=== PATIENT | male | born 1950 | race Caucasian/White ===

== ENCOUNTER 2018-06-18 21:25 | Inpatient (IN) | payer MEDICARE, OTHER ==
[~2018-06-18] VITALS: Ht 190.5 cm; Wt 76.3 kg
--- NOTE | 2018-06-18 21:42 | ED.ADGEN ---
Past History Past Medical History: Alcoholism, Depression, Seizure, Other Adult General Chief Complaint Chief Complaint ".. I ve been drinking.. now I am puking.. and my gut hurts...".. [facility] me here..." HPI HPI Patient is a 68 year old male who presents with above hx and complaints of nausea and vomiting. Pt. also complaint of some generalized abd. pain after vomiting multiple times this afternoon and late evening. Patient states he drank more than his usual 2 pints of gin patient states he does drink every day. Has had periods of sobriety in the past. Patient does have a history of some alcohol withdrawal symptoms when he attempts to quit. Patient's pain is generalized in his abdomen . No history of bad food. No history of trauma. No history of recent travel or specific ill contacts. Patient has had previous appendectomy. Pt. denies any dark or tarry stools. Review of Systems Review of Systems Constitutional: Denies fever or chills [] Eyes: Denies change in visual acuity, redness, or eye pain [] HENT: Denies nasal congestion or sore throat [] Respiratory: Denies cough or shortness of breath [] Cardiovascular: No additional information not addressed in HPI [] GI: Complaints of abdominal pain, nausea, vomiting,. Denies bloody stools or diarrhea [] : Denies dysuria or hematuria [] Musculoskeletal: Denies back pain or joint pain [] Integument: Denies rash or skin lesions [] Neurologic: Denies headache, focal weakness or sensory changes [] Endocrine: Denies polyuria or polydipsia [] All other systems were reviewed and found to be within normal limits, except as documented in this note. Family History Family History Noncontributory Current Medications Current Medications Current Medications Medications (Trade) Dose Ordered Sig/Cr Start Time Stop Time Status Last Admin Dose Admin Famotidine (Pepcid Vial) 20 mg 1X ONCE 06/18/18 21:45 06/18/18 21:46 UNV Lactated Ringer's 1,000 ml @ 1,000 mls/hr Q1H 06/18/18 21:43 06/18/18 22:42 UNV Ondansetron HCl (Zofran Odt) 8 mg 1X ONCE 06/18/18 21:45 06/18/18 21:46 UNV 06/18/18 22:03 8 MG Allergies Allergies Allergies Coded Allergies Type Severity Reaction Last Updated Verified Penicillins Allergy Unknown 06/18/18 Yes Physical Exam Physical Exam Constitutional: Currently acute distress,. intoxicated appearance. [] HENT: Normocephalic, atraumatic, bilateral external ears normal, oropharynx moist, no oral exudates, nose normal. [] Eyes: PERRLA, EOMI, conjunctiva normal, no discharge. [] Neck: Normal range of motion, no tenderness, supple, no stridor. [] Cardiovascular:Heart rate regular rhythm, no murmur [] Lungs & Thorax: Bilateral breath sounds equal at apexes scattered wheezes on auscultation [] Abdomen: Bowel sounds normal, soft, and generalized tenderness, no masses, no pulsatile masses. [] Old surgical scar Skin: Warm, dry, no erythema, no rash. [] Back: No tenderness, no CVA tenderness. [] Extremities: No tenderness, no cyanosis, no clubbing, ROM intact, no edema. [] Arthritic changes Neurologic: Alert and oriented X 3, normal motor function, normal sensory function, no focal deficits noted. []Uncoordinated. Wide gait Psychologic: Affect anxious, judgement normal, mood normal. [] EKG EKG My interpretation EKG shows a sinus rhythm at 98 bpm. There are bimodal P-wave' s. His nonspecific anterior lateral changes. But no findings acute STEMI of contralateral changes.[] Radiology/Procedures Radiology/Procedures My interpretation of abdomen x-ray shows no[] free air under the diaphragm. COPD changes. Nonspecific bowel gas pattern.. DJD Course & Med Decision Making Course & Med Decision Making Pertinent Labs and Imaging studies reviewed. (See chart for details) Discussed presentation, testing and tx. plan with Dr. Swift Pt. admitted to Dr. Swift for further tx. and evaluation. [] Final Impression Final Impression 1. Nausea/Vomiting 2. Abdomen Pain 3. Alcohol Abuse[] 4. Leukocytosis 5. Elevated amylase-pancreatitis 6. Elevated creatinine 1.4 7. Hyponatremia- 147 8. Hypokalemia 9. History of prior alcohol withdrawal seizures Dragon Disclaimer Dragon Disclaimer This electronic medical record was generated, in whole or in part, using a voice recognition dictation system. BELLA ZULETA MD Jun 18, 2018 21:42
[2018-06-18] MEDS ORDERED: IV RINGERS SOLUTION,LACTATED 1,000 ML IV SCH (21:43)
[2018-06-18] MEDS ORDERED: ONDANSETRON ODT 4 MG TAB.RAPDIS PO ONE (21:45)
[2018-06-18] MEDS ORDERED: FAMOTIDINE 20 MG/2 ML VIAL IVP ONE (22:30)
[2018-06-18 23:17] LABS: BASO # 0.1 x10^3/uL (0.0-0.2); BASO % 1 % (0-3); EOS % 0 % (0-3); HEMATOCRIT 50.1 % (39.0-53.0); HEMOGLOBIN 16.3 g/dL (13.0-17.5); LYMPH % 9 % (24-48); MEAN CORPUSCULAR HEMOGLOBIN 29 pg (25-35); MEAN CORPUSCULAR HGB CONC 32 g/dL (31-37); MEAN CORPUSCULAR VOLUME 89 fL (79-100); MONO # 0.4 x10^3/uL (0.0-1.1); MONO % 4 % (0-9); NEUT # 9.7 x10^3uL (1.8-7.7); NEUT % 87 % (31-73); PLATELET COUNT 169 x10^3/uL (140-400); RED BLOOD COUNT 5.65 x10^6/uL (4.30-5.70); WHITE BLOOD COUNT 11.2 x10^3/uL (4.0-11.0)
--- NOTE | 2018-06-18 23:30 | RAD ---
Acute abdominal series to include a PA chest radiograph June 18, 2018 CLINICAL HISTORY: Nausea and vomiting. A PA erect digital radiograph of the chest was obtained. Supine and erect AP digital radiographs of the abdomen/pelvis were obtained. No previous studies are available for comparison. The cardiac silhouette is normal in size. The thoracic aorta is tortuous. Atherosclerotic calcification of the thoracic aorta is seen. No acute pulmonary infiltrate is noted. No pneumothorax or pleural effusion is seen. The abdominal bowel gas pattern is nonobstructive. There is no evidence of free air. Atherosclerotic calcification of the abdominal aorta and its branches is noted. No radiopaque calculus is seen. Mild S-shaped curvature of the thoracolumbar spine is noted. Degenerative changes are seen involving the thoracic and lumbar spine. Old healed left-sided rib fractures are noted. IMPRESSION: No acute abnormality is seen. Electronically signed by: Bandar Marley MD (06/18/2018 11:26 PM) [facility]
[2018-06-18 23:38] LABS: ALBUMIN 4.2 g/dL (3.4-5.0); CALCIUM 9.4 mg/dL (8.5-10.1); CREATININE 1.4 mg/dL (0.7-1.3); DIRECT BILIRUBIN 0.2 mg/dL (0.0-0.2); GFR 50.4; POTASSIUM 3.3 mmol/L (3.5-5.1); TOTAL BILIRUBIN 0.8 mg/dL (0.2-1.0)
[2018-06-19 00:17] LABS: BILIRUBIN,URINE NEG (NEG); CLARITY,URINE HAZY; COLOR,URINE YELLOW; GLUCOSE,URINE NEG (NEG)
[2018-06-19 00:18] LABS: BACTERIA,URINE 0 /HPF (0-FEW); BARBITURATES NEG (NEG); BENZODIAZEPINES NEG (NEG); CANNABINOIDS NEG (NEG); COCAINE NEG (NEG); HYALINE CASTS, URINE FEW /HPF; METHADONE NEG (NEG); NITRITE,URINE NEG (NEG); OPIATES NEG (NEG); PHENCYCLIDINE NEG (NEG); RBC,URINE OCC /HPF (0-2); SQUAMOUS EPITHELIAL CELL,UR FEW /LPF; UROBILINOGEN,URINE 0.2 mg/dL (0.2 mg/dL); WBC,URINE OCC /HPF (0-4)
[2018-06-19 00:21] LABS: AMPHETAMINE/METHAMPHETAMINE NEG (NEG)
--- NOTE | 2018-06-19 00:27 | EKG ---
[address] [address] Test Date: 2018-06-18 Test Time: 23:20:02 Pat Name: ARIELA SANTILLAN Department: Room: Gender: M Shank Turner: : 1950 Requested By: BELLA ZULETA Order Number: [id number] Reading MD: Measurements Intervals [place] Rate: 98 P: 49 MT: 150 QRS: 31 QRSD: 82 T: 51 QT: 374 QTc: 479 Interpretive Statements SINUS RHYTHM LEFT ATRIAL ABNORMALITY QRS(T) CONTOUR ABNORMALITY CONSIDER ANTEROLATERAL MYOCARDIAL DAMAGE CONSIDER INFERIOR MYOCARDIAL DAMAGE PROLONGED QT ABNORMAL ECG RI6.01 Unconfirmed report No previous ECG available for comparison
[2018-06-19] MEDS ORDERED: LORazepam 2 MG/ML VIAL IV PRN (00:30)
[2018-06-19] MEDS ORDERED: POTASSIUM CHLORIDE 20 MEQ/15 ML ORAL LIQUID. PO ONE (00:45)
[2018-06-19] MEDS ORDERED: LORazepam 1 MG TABLET PO ONE (00:45)
[2018-06-19 01:30] VITALS: BP 151/87
[2018-06-19] MEDS: IV RINGERS SOLUTION,LACTATED 1,000 ML IV SCH ×3 (01:49→17:26)
[2018-06-19] MEDS: ONDANSETRON PF 4 MG/2 ML VIAL. IV PRN ×2 (01:50→07:48)
[2018-06-19] MEDS ORDERED: INSU100I27 SQ (05:38)
[2018-06-19] MEDS ORDERED: INSU100I17 SQ (05:38)
[2018-06-19] MEDS ORDERED: OMEP20CA9 PO (05:38)
[2018-06-19] MEDS ORDERED: ASPI-630 PO (05:38)
[2018-06-19] MEDS ORDERED: IPRATRPIUM/ALBUTEROL 0.5/2.5MG 3 ML NEBU. ONE (06:07)
[2018-06-19 06:11] VITALS: BP 150/83
[2018-06-19] MEDS: IPRATRPIUM/ALBUTEROL 0.5/2.5MG 3 ML NEBU. NEB SCH ×4 (06:26→20:40)
[2018-06-19] MEDS: FAMOTIDINE 20 MG TABLET PO SCH ×2 (07:39→21:47)
[2018-06-19] MEDS: LORazepam 1 MG TABLET PO SCH ×4 (07:40→21:00)
[2018-06-19] MEDS: INSULIN LISPRO 300 UNITS/3 ML INSULN.PEN. SQ SCH ×3 (08:17→17:35)
[2018-06-19] MEDS: NICOTINE 21MG PATCH. TD SCH (09:00)
[2018-06-19] MEDS: MVI, ADULT NO.4 WITH VIT K 10 ML, FOLIC ACID SYRINGE for ER 1 MG, THIAMINE 100 MG in IV... IV SCH ×4 (09:11)
[2018-06-19 11:09] VITALS: BP 167/85
--- NOTE | 2018-06-19 14:16 | HP ---
ADMIT DATE: 06/19/2018 HISTORY OF PRESENT ILLNESS: The patient is a 68-year-old -[place] male patient, who basically came to the Emergency Room complaining of recurrent bouts of nausea and vomiting, abdominal pain. He apparently drank about 3 pints of gin according to him, which is much more than he usually does and was evaluated. He stated that he does drink every day. Has period of sobriety in the past. 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 He was extensively evaluated and was found to have hyponatremia, hypokalemia, acute pancreatitis and was admitted to continue with alcohol withdrawal protocol and also to correct all his electrolytes. PAST MEDICAL HISTORY: Significant for hypertension, type 2 diabetes. 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 PAST SURGICAL HISTORY: Significant for umbilical hernia repair. ALLERGIES: He is allergic to PENICILLIN. MEDICATIONS: He is currently on aspirin 81 mg once a day, omeprazole 20 mg once a day. He is on NovoLog insulin 4 units before meals and Levemir insulin 14 units at bedtime. FAMILY HISTORY: Unremarkable. SOCIAL HISTORY: He is , has one son that he has not seen since he was 10 years old. He is retired from the [employer] and lives alone. He continues to smoke and drink 2 pints of gin every day. He did abuse marijuana, cocaine and amphetamine before, but according to him that was years ago. REVIEW OF SYSTEMS: The patient denied any blurring of vision, cataract, glaucoma or macular degeneration. Denied any earache, tinnitus or sensorineural deafness. Denied any nosebleeds, stuffy nose or postnasal drip. He denied any sore throat, sore tongue, toothache, hoarseness of voice or difficulty swallowing. He did complain of recurrent bouts of nausea, vomiting, generalized abdominal pain, but denied any diarrhea or constipation. Denied any hematemesis, melena or hematochezia. Denied any dysuria, frequency or hematuria. Did complain of nocturia. He said he has to wake up about 4-5 times at night time. Denied any chest pain, shortness of breath, orthopnea, paroxysmal nocturnal dyspnea. Denied any cough, phlegm or hemoptysis. Denied any chills, rigors, or fever. Denied any dizziness, lightheadedness, or vertigo. PHYSICAL EXAMINATION: GENERAL: On arrival to the Emergency Room; he apparently was alert, oriented x 3. There is no pallor, jaundice or cyanosis. No lymphadenopathy, no thyromegaly. No jugular venous distension. No lower limb edema. VITAL SIGNS: His heart rate was 108, blood pressure 151/87. His temperature was 98.4, respiratory rate 20, and oxygen saturation was 94% on room air. HEAD, EYES, EARS, NOSE AND THROAT: Normocephalic, atraumatic. HEART: Showed normal first and second heart sounds. No gallop, rub or murmur. CHEST: Clear to auscultation. No crepitation or rhonchi. ABDOMEN: Distended, soft, nontender. NEUROLOGIC: He was alert, oriented. All his cranial nerves were intact. EXTREMITIES: He moves extremities without difficulty. LABORATORY DATA: On admission showed a white cell count of 11,200, hemoglobin 16, hematocrit 50, MCV 89 and platelet count of 169,000 with normal manual differential. His prothrombin time was 9.9, INR of 1, aPTT was less than 21. His chemistry showed a serum sodium 147, potassium 3.3, chloride 99, bicarbonate 22, anion gap of 26, BUN 26, creatinine 1.4, estimated GFR was 50 mL per minute. His glucose 121, calcium was 9.4. Total bilirubin, AST, ALT, alkaline phosphatase were normal. His total protein was 9, albumin was 4.2. Amylase was 135, lipase 145. Urinalysis was essentially unremarkable. Urine toxicology screen showed that his blood alcohol level was 85 mg. However, the urine was negative for opiates, methadone, barbiturates, phencyclidine, amphetamine, methamphetamine, benzodiazepine, cocaine, and cannabinoids. ASSESSMENT AND PLAN: In summary, this is a 68-year-old -[place] male patient, who was admitted with nausea, vomiting, generalized abdominal pain. He was found to have slightly elevated amylase, normal lipase, has also hypernatremia, acute kidney injury and hypokalemia. Apparently, he has history of alcohol withdrawal seizures. He was started on banana bag together with alcohol withdrawal protocol. I will monitor his lab work again and replenish all his electrolytes and monitor his kidney function. NATACHA MIRANDA MD DR: SMILEY/giulia JOB#: [id number] / [id number]
[2018-06-19 15:34] VITALS: BP 162/74
[2018-06-19 19:15] VITALS: BP 139/76
[2018-06-19] MEDS ORDERED: INSULIN GLARGINE 300 UNITS/3 ML INSULN.PEN. SQ SCH (21:00)
[2018-06-19 22:57] VITALS: BP 126/70
[2018-06-20] MEDS: IV RINGERS SOLUTION,LACTATED 1,000 ML IV SCH (04:19)
[2018-06-20 05:32] VITALS: BP 152/79
[2018-06-20] MEDS: IPRATRPIUM/ALBUTEROL 0.5/2.5MG 3 ML NEBU. NEB SCH (06:02)
[2018-06-20 07:05] LABS: ALBUMIN 3.2 g/dL (3.4-5.0); ALBUMIN/GLOBULIN RATIO 0.9 (1.0-1.7); CALCIUM 8.6 mg/dL (8.5-10.1); GFR 74.3; POTASSIUM 3.5 mmol/L (3.5-5.1); TOTAL BILIRUBIN 0.8 mg/dL (0.2-1.0); TOTAL PROTEIN 6.7 g/dL (6.4-8.2)
[2018-06-20 07:55] LABS: BASO % 1 % (0-3); EOS % 1 % (0-3); HEMATOCRIT 42.3 % (39.0-53.0); HEMOGLOBIN 13.6 g/dL (13.0-17.5); LYMPH # 1.5 x10^3/uL (1.0-4.8); LYMPH % 24 % (24-48); MEAN CORPUSCULAR HEMOGLOBIN 29 pg (25-35); MEAN CORPUSCULAR HGB CONC 32 g/dL (31-37); MEAN CORPUSCULAR VOLUME 89 fL (79-100); MONO # 0.4 x10^3/uL (0.0-1.1); MONO % 6 % (0-9); NEUT # 4.3 x10^3uL (1.8-7.7); NEUT % 69 % (31-73); PLATELET COUNT 84 x10^3/uL (140-400); RED BLOOD COUNT 4.77 x10^6/uL (4.30-5.70); RED CELL DISTRIBUTION WIDTH 13.9 % (11.5-14.5); WHITE BLOOD COUNT 6.2 x10^3/uL (4.0-11.0)
[2018-06-20] MEDS: FAMOTIDINE 20 MG TABLET PO SCH (08:15)
[2018-06-20] MEDS: LORazepam 1 MG TABLET PO SCH (08:15)
[2018-06-20] MEDS: NICOTINE 21MG PATCH. TD SCH (08:16)
[2018-06-20] MEDS: MVI, ADULT NO.4 WITH VIT K 10 ML, FOLIC ACID SYRINGE for ER 1 MG, THIAMINE 100 MG in IV... IV SCH ×4 (08:17)
[2018-06-20] MEDS: INSULIN LISPRO 300 UNITS/3 ML INSULN.PEN. SQ SCH (08:22)
--- NOTE | 2018-06-20 12:03 | DS ---
DATE OF DISCHARGE: 06/19/2018 HOSPITAL COURSE: The patient is a 68-year-old -[place] male patient who was admitted with recurrent bouts of nausea and vomiting and diffuse abdominal pain. He apparently drank about 3 pints of gin according to him, which is very much more than he usually drinks. He did have alcohol withdrawal symptoms whenever he attempts to quit, has been drinking since he was 13 years old. He was extensively evaluated and was found to have hyponatremia, hypokalemia, and acute pancreatitis and was admitted to continue with alcohol withdrawal protocol and to correct all his electrolytes. He actually did very well. His sodium has normalized, it is now 141 and potassium has improved to 3.5. His serum lipase is down to 197. He was evaluated by the physical therapist and has been up and about and a decision was made to discharge him home to follow with his primary care physician at the [facility]. PHYSICAL EXAMINATION: GENERAL: When I examined him this morning, he looked well and was clearly in no apparent respiratory distress, pale, but no jaundice, cyanosis, or thyromegaly. No jugular venous distention. No limb edema. VITAL SIGNS: His heart rate was 78, blood pressure 152/79, temperature was 98.1, respiratory rate 20, and oxygen saturation was 95% on room air. HEAD, EYES, EARS, NOSE AND THROAT: Showed normocephalic, atraumatic. NECK: Supple. HEART: Showed normal first and second heart sounds with no gallop, rub or murmur. CHEST: Clear to auscultation. No crepitation or rhonchi. ABDOMEN: Distended, soft, nontender. No guarding or rigidity. No organomegaly. Hernial orifice intact. Bowel sounds normal. NEUROLOGIC: He was awake, alert, responding appropriately. Cranial nerves intact. EXTREMITIES: He moves extremities without difficulty, ambulates without assistance or assistive devices. LABORATORY DATA: His lab work this morning showed a serum sodium 141, potassium 3.5, chloride 104, bicarbonate 31, anion gap of 6, BUN 14, creatinine 1, estimated GFR was 74 mL per minute, his glucose was 170 mg later, calcium was 8.6, magnesium 2. Total bilirubin, AST, ALT, alkaline phosphatase were normal. His total protein 6.7, albumin 3.2. White cell count is 6200, hemoglobin 13, hematocrit 42, MCV 89, and platelet count of 84,000. His prothrombin time was 9.9, INR of 1, aPTT was less than 21. Urinalysis was essentially unremarkable and toxicology screen was positive for blood alcohol level of 85 mg/dL. DISCHARGE MEDICATIONS: The patient was discharged home to continue on following medications: Aspirin 81 mg once a day, NovoLog insulin 4 units before meals and detemir insulin 40 units at bedtime, and omeprazole 20 mg once a day. FINAL DISCHARGE DIAGNOSES: Alcohol intoxication, hyponatremia, hypokalemia, dehydration, mild pancreatitis. NATACHA MIRANDA MD DR: SMILEY/giulia JOB#: [id number] / [id number]
== END 2018-06-20 12:30 | disposition home or self-care (01) | DRG 438 ==
LOC: ER 21:25 → EDBD 06-19 00:15 → 1 SOUTH 06-19 00:15 → UNDOADMIN 06-19 00:15 → ER 06-19 01:28
PROVIDERS: ADMIT Internal Medicine; ATTEND Internal Medicine
DX: K85.90 Acute pancreatitis without necrosis or infection, unspecified (principal); N17.0 Acute kidney failure with tubular necrosis; F10.239 Alcohol dependence with withdrawal, unspecified; E87.0 Hyperosmolality and hypernatremia; E87.1 Hypo-osmolality and hyponatremia; E11.9 Type 2 diabetes mellitus without complications; E86.0 Dehydration; E87.6 Hypokalemia; F10.229 Alcohol dependence with intoxication, unspecified; F17.200 Nicotine dependence, unspecified, uncomplicated; I10 Essential (primary) hypertension; Z90.49 Acquired absence of other specified parts of digestive tract; F12.10 Cannabis abuse, uncomplicated; F32.9 Major depressive disorder, single episode, unspecified; Z88.0 Allergy status to penicillin
CPT/HCPCS: 36415; 74022; 80048; 80053; 80076; 80307; 81001; 82150; 82553; 82947; 83690; 83735; 84484; 85025; 85610; 85730; 93005; 94640; 96361; 96374; 99406; G0238; G0480; J1815; J2405; J7120; J7620; Q0162; S0028; 99285-25; G0479; J7030

== ENCOUNTER 2019-02-07 04:37 | Inpatient (IN) | payer MEDICARE, OTHER ==
[~2019-02-07] VITALS: Ht 190.5 cm; Wt 80.5 kg
[~2019-02-07 04:37] MED LIST: ASPI-630 PO; INSU100I17 SQ; INSU100I27 SQ; OMEP20CA9 PO
--- NOTE | 2019-02-07 04:44 | ED.ADGEN ---
Past History Past Medical History: Alcoholism, Bronchitis, CAD, COPD, Depression, Hypertension, Seizure, Other Past Surgical History: Appendectomy Past Surgical History Umbilicus hernia repair Smoking: Cigarettes, Quit Less Than 1 Year Alcohol Use: Heavy Drug Use: None Adult General Chief Complaint Chief Complaint ".. I ve been hitting the juice .. hard the last 3 days... now I got the vomiting again.. probably some pancreatitis.. I was here in June.. with the last episode... I last drank about 0300.. but I ve vomiting constant since then... yellow stuff.. pain not too bad... if I am not vomiting... " .." This morning.. or since last night I did about at quart of Rifiniti...."... " I ve got to quit... ".. HPI HPI Patient is a 68 year old retired [employer] male who presents with above hx and complaints of epigastric pain, nausea and vomiting. Admits to heavy alcohol use last 3 days. Patient was last admitted for an episode of alcohol abuse in June of this past year. Patient normally follows at [facility]. Patient has history of past alcohol withdrawal seizures., Gastritis, Hypertension, diabetes, alcohol -induced liver disease, alcohol-induced pancreatitis, allergy to penicillin, low sodium levels, low potassium levels. Hx tobacco , marijuana , cocaine, amphetamine drug use and coronary artery disease. Pt. states he quit smoking last week. Patient denies any trauma. Patient denies any travel. Patient denies any specific ill contacts. Patient denies any recent tarry or bloody stools. Patient denies has not vomited up any blood at this time. Patient denies any history immunosuppression. Patient has had periods of sobriety in the past. Pt. normally follows with Dr. Cerda. Review of Systems Review of Systems Constitutional: Denies fever or chills [] Eyes: Denies change in visual acuity, redness, or eye pain [] HENT: Denies nasal congestion or sore throat [] Respiratory: Denies cough or shortness of breath [] Cardiovascular: No additional information not addressed in HPI [] GI: Complaints of epigastric abdominal pain, nausea, vomiting. Denies bloody stools or diarrhea [] : Denies dysuria or hematuria [] Musculoskeletal: Denies back pain or joint pain [] Integument: Denies rash or skin lesions [] Neurologic: Denies headache, focal weakness or sensory changes [] Endocrine: Denies polyuria or polydipsia [] All other systems were reviewed and found to be within normal limits, except as documented in this note. Family History Family History Noncontributory Current Medications Current Medications Current Medications Medications (Trade) Dose Ordered Sig/Cr Start Time Stop Time Status Last Admin Dose Admin Famotidine (Pepcid Vial) 20 mg 1X ONCE 02/07/19 05:00 02/07/19 05:01 DC 02/07/19 05:06 20 MG Lactated Ringer's 1,000 ml @ 100 mls/hr Q10H 02/07/19 05:00 02/07/19 14:59 DC 02/07/19 05:05 100 MLS/HR Ondansetron HCl (Zofran) 8 mg 1X ONCE 02/07/19 05:00 02/07/19 05:01 DC 02/07/19 05:06 8 MG Allergies Allergies Allergies Coded Allergies Type Severity Reaction Last Updated Verified Penicillins Allergy Intermediate 06/19/18 Yes Physical Exam Physical Exam Constitutional:Moderately acute distress, non toxic in appearance. [] HENT: Normocephalic, atraumatic, bilateral external ears normal, oropharynx dry , no oral exudates, nose normal. []Poor dentition. Eyes: PERRLA, EOMI, conjunctiva injected, no discharge. [] Neck: Normal range of motion, no tenderness, supple, no stridor. [] Cardiovascular:Tachycardia Heart rate regular rhythm, no murmur []PMI slightly to lt. Lungs & Thorax: Bilateral breath sounds equal apex with scattered wheezes on auscultation [] Abdomen: Bowel sounds normal, soft, epigastric tenderness, no masses, no pulsatile masses. [] Pt. declines rectal at this time. ( Actively gagging) Rebound to epigastric area. Old surgery scars - umbilicus and appendix. Skin: Warm, dry, no erythema, no rash. [] Back: No tenderness, no CVA tenderness. [] Extremities: No tenderness, no cyanosis, no clubbing, ROM intact, no edema. [] No psoas sign. Mild arthritic changes. Neurologic: Alert and oriented X 3, normal motor function, normal sensory function, no focal deficits noted. []Slightly wide un steady gait. Psychologic: Affect anxious, judgement normal, mood normal. [] Current Patient Data Vital Signs Vital Signs Date Time Temp Pulse Resp B/P (MAP) Pulse Ox O2 Delivery O2 Flow Rate FiO2 02/07/19 04:56 98.1 120 20 92 Room Air 02/07/19 04:48 184/105 (131) EKG EKG My interpretation EKG shows a sinus rhythm at 89 bpm. No acute focal pathology or findings of acute STEMI with contralateral changes.[] Radiology/Procedures Radiology/Procedures My interpretation of daily admin film shows no acute cardiopulmonary infiltrates. There is no free air in the diaphragm. Does have chronic lung changes consistent with bronchitis/COPD. There is no free air under the diaphragm. Nonspecific bowel gas pattern. Does have findings of degenerative joint changes. Course & Med Decision Making Course & Med Decision Making Pertinent Labs and Imaging studies reviewed. (See chart for details) Stress presentation testing and treatment plan with Dr. Swift. Pt. admitted to Dr. Swift for further evaluation and tx. [] Final Impression Final Impression 1. Nausea and Vomiting[] 2. Epigastric Pain 3. Hx Alcohol Abuse 4. Hx prior Alcohol Withdrawal Seizures 5. Hypernatremic 146 6. Elevated BUN 33 7. DM- glue 188 8. ETOH this Am is 17 9. Dehydration. Dragon Disclaimer Dragon Disclaimer This electronic medical record was generated, in whole or in part, using a voice recognition dictation system. Discharge Summary Brief Hospital Course Allergies Allergies Coded Allergies Type Severity Reaction Last Updated Verified Penicillins Allergy Intermediate 06/19/18 Yes Vital Signs Vital Signs Date Time Temp Pulse Resp B/P (MAP) Pulse Ox O2 Delivery O2 Flow Rate FiO2 02/07/19 04:56 98.1 120 20 92 Room Air 02/07/19 04:48 184/105 (131) Lab Results Brief Hospital Course Mr. Claros is a 68 old male who presented with hx N/V, and recent three day alcoholic binge. Plan admit to Dr. Swift Discharge Information Condition at Discharge: Improved, Stable Dischare Medications Current Medications Lactated Ringer's 1,000 ml @ 100 mls/hr Q10H IV Last administered on at 05:05; Admin Dose 100 MLS/HR; Start 02/07/19 at 05:00; Stop 02/07/19 at 14: 59; Status DC Ondansetron HCl (Zofran) 8 mg 1X ONCE IV Last administered on 02/07/19at 05:06 ; Admin Dose 8 MG; Start 02/07/19 at 05:00; Stop 02/07/19 at 05:01; Status DC Famotidine (Pepcid Vial) 20 mg 1X ONCE IVP Last administered on 02/07/19at 05: 06; Admin Dose 20 MG; Start 02/07/19 at 05:00; Stop 02/07/19 at 05:01; Status DC Active Scripts Active Reported Omeprazole 20 Mg Capsule.dr 1 Cap PO DAILY LAST DOSE GIVEN: DATE: TODAY TIME: AM SUBSTITUTED FOR FAMOTIDINE NEXT DOSE DUE: DATE: TOMORROW TIME: AM Aspirin 81 Mg Tab.chew 81 Mg PO DAILY 1 Days LAST DOSE GIVEN: NOT GIVEN THIS ADMISSION NEXT DOSE DUE: DATE: TOMORROW TIME: AM TIME: Levemir Flextouch (Insulin Detemir) 100 Unit/1 Ml Insuln.pen 14 Unit SQ HS LAST DOSE GIVEN: DATE: YESTERDAY TIME: AT BEDTIME NEXT DOSE DUE: DATE: TODAY TIME: AT BEDTIME Novolog Flexpen (Insulin Aspart) 100 Unit/1 Ml Insuln.pen 4 Units SQ TIDWMEALS LAST DOSE GIVEN: DATE: TODAY TIME: WITH BREAKFAST NEXT DOSE DUE: DATE: TODAY TIME: WITH LUNCH Discharge Summary Brief Hospital Course Allergies Allergies Coded Allergies Type Severity Reaction Last Updated Verified Penicillins Allergy Intermediate 06/19/18 Yes Vital Signs Vital Signs Date Time Temp Pulse Resp B/P (MAP) Pulse Ox O2 Delivery O2 Flow Rate FiO2 02/07/19 04:56 98.1 120 20 92 Room Air 02/07/19 04:48 184/105 (131) Brief Hospital Course Mr. Claros is a 68 old male who presented with hx of ETOH binge and alcohol withdrawal seizures. Admitted to Dr. Swift. Discharge Information Condition at Discharge: Improved, Stable Dischare Medications Current Medications Lactated Ringer's 1,000 ml @ 100 mls/hr Q10H IV Last administered on at 05:05; Admin Dose 100 MLS/HR; Start 02/07/19 at 05:00; Stop 02/07/19 at 14: 59; Status DC Ondansetron HCl (Zofran) 8 mg 1X ONCE IV Last administered on 3/30/19at 05:06 ; Admin Dose 8 MG; Start 02/07/19 at 05:00; Stop 02/07/19 at 05:01; Status DC Famotidine (Pepcid Vial) 20 mg 1X ONCE IVP Last administered on 02/07/19at 05: 06; Admin Dose 20 MG; Start 02/07/19 at 05:00; Stop 02/07/19 at 05:01; Status DC Active Scripts Active Reported Omeprazole 20 Mg Capsule.dr 1 Cap PO DAILY LAST DOSE GIVEN: DATE: TODAY TIME: AM SUBSTITUTED FOR FAMOTIDINE NEXT DOSE DUE: DATE: TOMORROW TIME: AM Aspirin 81 Mg Tab.chew 81 Mg PO DAILY 1 Days LAST DOSE GIVEN: NOT GIVEN THIS ADMISSION NEXT DOSE DUE: DATE: TOMORROW TIME: AM TIME: Levemir Flextouch (Insulin Detemir) 100 Unit/1 Ml Insuln.pen 14 Unit SQ HS LAST DOSE GIVEN: DATE: YESTERDAY TIME: AT BEDTIME NEXT DOSE DUE: DATE: TODAY TIME: AT BEDTIME Novolog Flexpen (Insulin Aspart) 100 Unit/1 Ml Insuln.pen 4 Units SQ TIDWMEALS LAST DOSE GIVEN: DATE: TODAY TIME: WITH BREAKFAST NEXT DOSE DUE: DATE: TODAY TIME: WITH LUNCH Dragon Disclaimer This chart was dictated in whole or in part using Voice Recognition software in a busy, high-work load, and often noisy Emergency Department environment. It may contain unintended and wholly unrecognized errors or omissions. Dragon Disclaimer This chart was dictated in whole or in part using Voice Recognition software in a busy, high-work load, and often noisy Emergency Department environment. It may contain unintended and wholly unrecognized errors or omissions. BELLA ZULETA MD Feb 07, 2019 04:44
[2019-02-07] MEDS ORDERED: ONDANSETRON PF 4 MG/2 ML VIAL. IV ONE (05:00)
[2019-02-07] MEDS ORDERED: IV RINGERS SOLUTION,LACTATED 1,000 ML IV SCH (05:00)
[2019-02-07] MEDS ORDERED: FAMOTIDINE 20 MG/2 ML VIAL IVP ONE (05:00)
[2019-02-07] MEDS ORDERED: THIAMINE 200 MG/2 ML VIAL. IV ONE (05:23)
[2019-02-07] MEDS ORDERED: MVI, ADULT NO.4 WITH VIT K 10 ML VIAL IV ONE (05:24)
[2019-02-07] MEDS ORDERED: FOLIC ACID 5 MG/ML SYRINGE for ER IV ONE (05:24)
[2019-02-07] MEDS: IV RINGERS SOLUTION,LACTATED 1,000 ML IV SCH ×3 (05:30→23:23)
[2019-02-07] MEDS ORDERED: ONDANSETRON PF 4 MG/2 ML VIAL. IV PRN (05:30)
[2019-02-07] MEDS ORDERED: MORPHINE SULFATE 2 MG/ML DISP.SYRIN. IV PRN (05:30)
--- NOTE | 2019-02-07 05:37 | RAD ---
Acute abdominal series to include a PA chest radiograph 02/07/2019 Clinical History: Nausea and vomiting for 2 days A PA digital radiograph of the chest was obtained. Supine and erect AP digital radiographs of the abdomen/pelvis were obtained. Comparison study is dated 06/18/2018. The cardiac silhouette is normal in size. Atherosclerotic calcification of the thoracic aorta is seen. The thoracic aorta is mildly tortuous. No pulmonary infiltrate is seen. No pleural effusion or pneumothorax is noted. The abdominal bowel gas pattern is nonobstructive. There is no evidence of free air. No radiopaque calculus is seen. Atherosclerotic calcification of the abdominal aorta is seen. A moderate amount of stool is seen involving the rectum. Degenerative changes are seen involving the thoracic and lumbar spine. IMPRESSION: Nonobstructive bowel gas pattern. Electronically signed by: Bandar Marley MD (02/07/2019 5:34 AM) [id number]
[2019-02-07 05:48] LABS: BASO # 0.1 x10^3/uL (0.0-0.2); BASO % 1 % (0-3); EOS # 0.1 x10^3/uL (0.0-0.7); EOS % 2 % (0-3); HEMATOCRIT 46.2 % (39.0-53.0); HEMOGLOBIN 15.2 g/dL (13.0-17.5); LYMPH # 1.3 x10^3/uL (1.0-4.8); LYMPH % 27 % (24-48); MEAN CORPUSCULAR HEMOGLOBIN 29 pg (25-35); MEAN CORPUSCULAR HGB CONC 33 g/dL (31-37); MEAN CORPUSCULAR VOLUME 88 fL (79-100); MONO # 0.4 x10^3/uL (0.0-1.1); MONO % 9 % (0-9); NEUT % 61 % (31-73); PLATELET COUNT 174 x10^3/uL (140-400); RED BLOOD COUNT 5.27 x10^6/uL (4.30-5.70); RED CELL DISTRIBUTION WIDTH 14.9 % (11.5-14.5); WHITE BLOOD COUNT 4.9 x10^3/uL (4.0-11.0)
[2019-02-07 05:53] LABS: ALBUMIN 4.5 g/dL (3.4-5.0); CALCIUM 10.2 mg/dL (8.5-10.1); CREATININE 1.3 mg/dL (0.7-1.3); DIRECT BILIRUBIN 0.2 mg/dL (0.0-0.2); GFR 54.9; POTASSIUM 3.6 mmol/L (3.5-5.1); TOTAL BILIRUBIN 0.9 mg/dL (0.2-1.0); TOTAL PROTEIN 9.1 g/dL (6.4-8.2)
[2019-02-07] MEDS ORDERED: MVI, ADULT NO.4 WITH VIT K 10 ML, FOLIC ACID SYRINGE for ER 1 MG, THIAMINE INJ 100 MG i... IV ONE ×4 (06:00)
--- NOTE | 2019-02-07 06:25 | EKG ---
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
--- NOTE | 2019-02-07 06:39 | NUR ---
The patient, ARIELA SANTILLAN, 68 y/o, M admitted by NATACHA MIRANDA MD, was given written information regarding hospital policies, unit procedures and contact persons. Patient arrived on unit from the ER. Got report from nurse Yoselin. Patient arrived via gurney. Patient hooked up to heart monitor. Patient has no complaints at this time. Will continue to monitor. Valuables were checked and left at bedside.
[2019-02-07 06:42] VITALS: BP 159/83
[2019-02-07] MEDS: IPRATRPIUM/ALBUTEROL 0.5/2.5MG 3 ML NEBU. NEB SCH ×4 (08:00→20:17)
[2019-02-07] MEDS: FAMOTIDINE 20 MG TABLET PO SCH ×2 (10:10→21:29)
[2019-02-07 10:50] VITALS: BP 156/82
[2019-02-07 16:05] VITALS: BP 120/67
[2019-02-07 16:41] LABS: BARBITURATES NEG (NEG); BENZODIAZEPINES NEG (NEG); CANNABINOIDS POS (NEG); COCAINE NEG (NEG); METHADONE NEG (NEG); OPIATES NEG (NEG); PHENCYCLIDINE NEG (NEG)
[2019-02-07 16:44] LABS: BACTERIA,URINE 0 /HPF (0-FEW); BILIRUBIN,URINE NEG (NEG); CLARITY,URINE CLEAR; COLOR,URINE YELLOW; GLUCOSE,URINE NEG (NEG); NITRITE,URINE NEG (NEG); RBC,URINE 0 /HPF (0-2); SQUAMOUS EPITHELIAL CELL,UR OCC /LPF; UROBILINOGEN,URINE 1 mg/dL (0.2 mg/dL); WBC,URINE OCC /HPF (0-4)
[2019-02-07 16:49] LABS: AMPHETAMINE/METHAMPHETAMINE NEG (NEG)
--- NOTE | 2019-02-07 16:59 | HP ---
ADMIT DATE: 02/07/2019 HISTORY OF PRESENT ILLNESS: The patient is a 68-year-old -N[place] male patient, who came to the Emergency Room again with recurrent bouts of nausea, vomiting and abdominal pain. He has been drinking hard for the last 3 days and the pain is mostly in the epigastric area. He was admitted for a similar complaint in June of last year. Normally follows at the [facility]. He has a history of alcohol withdrawal seizures, gastritis. He was investigated in the Emergency Room and his lab work showed his serum lipase was only 60. The patient was kept n.p.o. and was given a banana bag, continued IV fluid. PAST MEDICAL HISTORY: Significant for hypertension, type 2 diabetes mellitus, alcohol-induced liver disease, alcohol-induced pancreatitis. PAST SURGICAL HISTORY: Significant for umbilical hernia repair. ALLERGIES: He is allergic to PENICILLIN. MEDICATIONS: He is currently on following medications: He is on aspirin 81 mg once a day, omeprazole 20 mg once a day. He is on NovoLog FlexPen 4 units 3 times a day with meals and Levemir insulin 14 units subcutaneously at bedtime. FAMILY HISTORY: Unremarkable. SOCIAL HISTORY: He is , has one son that he has not seen since he was 10 years old. He is retired from the [employer] and lives alone. He continues to drink a fifth of vodka every day. Quit smoking about 2 weeks ago. He used to smoke up to 6 packs a day. He did abuse cocaine, marijuana, and amphetamine before, but according to him that was years ago. REVIEW OF SYSTEMS: The patient denied any blurring of vision, cataract, glaucoma or macular degeneration. Denied any earache, tinnitus or sensorineural deafness. Denied any nosebleeds, stuffy nose or postnasal drip. Denied any sore throat, sore tongue, toothache, hoarseness of voice or difficulty swallowing. Denied any nausea, vomiting, diarrhea or constipation. Denied any hematemesis, melena or hematochezia. Denied any dysuria, frequency or hematuria. He denied any chest pain, shortness of breath, orthopnea, paroxysmal nocturnal dyspnea. Denied any cough, phlegm or hemoptysis. Denied any chills, rigors, or fever. Denied any dizziness, lightheadedness, or vertigo. PHYSICAL EXAMINATION: GENERAL: On arrival to the Emergency Room, he looked well and was clearly in no apparent respiratory distress. No pallor, jaundice, cyanosis, or thyromegaly. No jugular venous distension. No limb edema. VITAL SIGNS: His heart rate was 120, blood pressure was 184/105, temperature was 98.1, respiratory rate 20, and oxygen saturation was 95%. HEAD, EYES, EARS, NOSE, AND THROAT: Showed normocephalic, atraumatic. NECK: Supple. HEART: Showed normal first and second heart sounds with no gallop, rub or murmur. CHEST: Clear to auscultation. No crepitation or rhonchi. ABDOMEN: Distended, soft, nontender. No guarding or rigidity. No organomegaly. All hernial orifice intact. Bowel sounds normal. NEUROLOGIC: He was alert, oriented x 3 with normal motor and sensory function. No focal deficit except that he has slightly wide-based gait. LABORATORY DATA: His lab work on arrival showed his white cell count to be 4900, hemoglobin 15, hematocrit 46, MCV 88 and platelet count of 174,000. His chemistry showed serum sodium of 146, potassium 3.6, chloride 95, bicarbonate 29, anion gap of 22, BUN of 33, creatinine 1.3, estimated GFR was 54 mL per minute. His glucose was 188, calcium was 10.2. His total bilirubin, AST, ALT, alkaline phosphatase were normal. His total protein was 9.1, albumin was 4.5. Amylase and lipase were normal. His prothrombin time was 9.9, INR of 1, aPTT was 21. Toxic screen showed blood alcohol level of 17 grams. His chest x-ray showed that the cardiac silhouette is normal in size. Atherosclerotic calcification of the thoracic aorta is seen. The thoracic aorta is mildly tortuous. No pulmonary infiltrates are seen. No pleural effusion or pneumothorax is noted. The abdominal gas pattern is nonobstructive. There is no evidence of free air. No radiopaque calculus is seen. Atherosclerotic calcification of the abdominal aorta is seen. Moderate amount of stool is seen involving the rectum. Degenerative changes are seen involving the thoracic and lumbar spine. ASSESSMENT AND PLAN: The patient was admitted with possible acute pancreatitis and serum lipase was normal. Alcohol withdrawal. Other medical problems include obviously hypertension, type 2 diabetes, alcohol-induced pancreatitis and alcohol-induced liver disease. We will continue with alcohol withdrawal protocol. Continue with the pain management. We will start clear liquid diet and advance as tolerated. NATACHA MIRANDA MD DR: SMILEY/giulia JOB#: [id number] / [id number]
[2019-02-07 20:08] VITALS: BP 109/65
[2019-02-07 22:56] VITALS: BP 121/77
[2019-02-08] VITALS (8 sets, daily range): BP systolic 104–129; BP diastolic 67–82
[2019-02-08] MEDS: IV RINGERS SOLUTION,LACTATED 1,000 ML IV SCH ×4 (00:15→19:00)
[2019-02-08 07:26] LABS: BASO % 1 % (0-3); EOS # 0.1 x10^3/uL (0.0-0.7); EOS % 3 % (0-3); HEMATOCRIT 41.2 % (39.0-53.0); HEMOGLOBIN 12.9 g/dL (13.0-17.5); LYMPH # 0.8 x10^3/uL (1.0-4.8); LYMPH % 19 % (24-48); MEAN CORPUSCULAR HEMOGLOBIN 29 pg (25-35); MEAN CORPUSCULAR HGB CONC 31 g/dL (31-37); MEAN CORPUSCULAR VOLUME 92 fL (79-100); MONO # 0.4 x10^3/uL (0.0-1.1); MONO % 10 % (0-9); NEUT # 2.8 x10^3uL (1.8-7.7); NEUT % 67 % (31-73); PLATELET COUNT 100 x10^3/uL (140-400); RED BLOOD COUNT 4.46 x10^6/uL (4.30-5.70); RED CELL DISTRIBUTION WIDTH 15.2 % (11.5-14.5); WHITE BLOOD COUNT 4.3 x10^3/uL (4.0-11.0)
[2019-02-08 07:45] LABS: ALBUMIN 3.4 g/dL (3.4-5.0); CALCIUM 8.2 mg/dL (8.5-10.1); CREATININE 1.1 mg/dL (0.7-1.3); GFR 66.6; TOTAL PROTEIN 6.7 g/dL (6.4-8.2)
[2019-02-08] MEDS: INSULIN LISPRO 300 UNITS/3 ML INSULN.PEN. SQ SCH ×2 (09:34→12:30)
[2019-02-08] MEDS: ASPIRIN 81 MG TAB.CHEW PO SCH (09:40)
[2019-02-08] MEDS: PANTOPRAZOLE 40 MG TABLET. PO SCH (09:40)
[2019-02-08] MEDS: FAMOTIDINE 20 MG TABLET PO SCH ×2 (09:40→19:54)
[2019-02-08] MEDS: MVI, ADULT NO.4 WITH VIT K 10 ML, FOLIC ACID SYRINGE for ER 1 MG, THIAMINE INJ 100 MG i... IV SCH ×4 (11:41)
--- NOTE | 2019-02-08 20:45 | PN ---
DATE: 02/08/2019 SUBJECTIVE: The patient is resting slightly propped up in bed, in no apparent distress. He has had no further episodes of nausea or vomiting. Denied any abdominal pain. He has tolerated his breakfast this morning, however he continued to feel dizzy and unsteady on his feet. PHYSICAL EXAMINATION: GENERAL: When I examined him, he looked well and was clearly in no apparent respiratory distress. No pallor, jaundice, cyanosis, or thyromegaly. No jugular venous distension. No limb edema. VITAL SIGNS: His heart rate was 85, blood pressure 119/74, temperature was 98, respiratory rate 20, and oxygen saturation was 100% on room air. HEAD, EYES, EARS, NOSE, AND THROAT: Normocephalic, atraumatic. NECK: Supple. HEART: Showed normal first and second sounds. No gallop, rub, or murmur. CHEST: Clear to auscultation. No crepitation or rhonchi. ABDOMEN: Distended, soft, nontender. NEUROLOGIC: He was awake, alert, hard of hearing with bilateral hearing aids. Otherwise, all his cranial nerves were intact. He moved extremities without difficulty. His intake over the last 24 hours was 1000. No output was recorded. LABORATORY DATA: His lab work this morning showed white cell count 4300, hemoglobin 12.9, hematocrit 41, MCV 92, and platelet count of 100,000. His chemistry showed serum sodium 140, potassium 4, chloride 100, bicarbonate 30, anion gap of 10, BUN 17, creatinine 1.1, estimated GFR was 66 mL per minute. His glucose was 209. Calcium was 8.2. Total bilirubin, AST, ALT, alkaline phosphatase were normal. Total protein was 6.7, albumin 3.4. Lipase was 55. ASSESSMENT: Alcohol dependence and alcohol withdrawal, hypertension, type 2 diabetes, alcohol-induced liver disease, and alcohol-induced pancreatitis. PLAN: To continue with the banana bag. Continue pain management. Continue to monitor his blood sugar and adjust insulin as needed. Advance diet as tolerated. If he remains stable tomorrow, he can be discharged home. NATACHA MIRANDA MD DR: SMILEY/giulia JOB#: [id number] / [id number]
[2019-02-08] MEDS ORDERED: INSULIN GLARGINE 300 UNITS/3 ML INSULN.PEN. SQ SCH (21:00)
[2019-02-09 06:00] VITALS: BP 121/71
[2019-02-09 07:08] LABS: CALCIUM 8.5 mg/dL (8.5-10.1); CREATININE 1.1 mg/dL (0.7-1.3); GFR 66.6; MAGNESIUM 1.7 mg/dL (1.8-2.4); POTASSIUM 3.5 mmol/L (3.5-5.1)
[2019-02-09] MEDS: FAMOTIDINE 20 MG TABLET PO SCH (08:37)
[2019-02-09] MEDS: ASPIRIN 81 MG TAB.CHEW PO SCH (08:37)
[2019-02-09] MEDS: PANTOPRAZOLE 40 MG TABLET. PO SCH (08:37)
[2019-02-09] MEDS: INSULIN LISPRO 300 UNITS/3 ML INSULN.PEN. SQ SCH ×2 (08:47→12:20)
[2019-02-09] MEDS: MVI, ADULT NO.4 WITH VIT K 10 ML, FOLIC ACID SYRINGE for ER 1 MG, THIAMINE INJ 100 MG i... IV SCH ×4 (09:02)
[2019-02-09 10:43] VITALS: BP 121/75
[2019-02-09 15:02] VITALS: BP 116/73
--- NOTE | 2019-02-09 16:29 | NUR ---
Discharge Note: ARIELA SANTILLAN [address] Discharge instructions and discharge home medications reviewed with patient and a copy given. All questions have been answered and understanding verbalized. The following instructions and handouts were given: medications, follow up instructions, and educational handouts given. Discontinued lines and drains: peripheral IV discontinued with no complications. Patient discharged to home via '[facility].
--- NOTE | 2019-02-09 18:32 | DS ---
DATE OF DISCHARGE: 02/09/2019 HOSPITAL COURSE: The patient is a 68-year-old -Turkish male patient who came to the Emergency Room with recurrent bouts of nausea, vomiting and abdominal pain. He has been drinking hard over the last 3 days and pain is mostly in epigastric area, was admitted for similar complaint in June last year. He normally follows at the [facility]. He has a history of alcohol withdrawal seizures, gastritis. He was investigated in the Emergency Room. His lab work showed serum lipase was only 60%. He was kept n.p.o., started on a banana bag and IV fluid and he did actually very well, he has had no further episodes of nausea and vomiting. His serum lipase remained normal. In fact on 3 consecutive measurements, the serum lipase was 60, 55 and 69. We started him on a clear liquid diet and advance diet to regular diet and tolerated that very well, has no further episode of epigastric pain, no further nausea, vomiting, has been up and about and as he remained stable, a decision was made to discharge him home. PHYSICAL EXAMINATION: GENERAL: When I saw him this afternoon, he looked well and was clearly in no apparent respiratory distress. No pallor, jaundice, cyanosis, or thyromegaly. No jugular venous distension. No limb edema. VITAL SIGNS: His heart rate was 73, blood pressure was 116/73, temperature was 97.9, respiratory rate was 20, and oxygen saturation was 97%. HEAD, EYES, EARS, NOSE AND THROAT: Normocephalic, atraumatic. NECK: Supple. HEART: Showed normal first and second hearts sounds. No gallop or murmur. CHEST: Clear to auscultation. No crepitation or rhonchi. ABDOMEN: Distended, soft, nontender. NEUROLOGIC: He was awake, alert, responding appropriately. All cranial nerves are intact. EXTREMITIES: He moves extremities without difficulty, ambulates without assistance or assistive devices. LABORATORY DATA: His lab work showed a white cell count of 4300, hemoglobin was 12.9, hematocrit 41, MCV 92, and platelet count of 100,000. His chemistry showed a serum sodium 141, potassium 3.5, chloride 102, bicarbonate 31, anion gap of 8, BUN 13, creatinine 1.1, estimated GFR was 66 mL per minute. His glucose was 193, calcium was 8.5, magnesium was 1.7. Serum lipase was 69. His urinalysis is unremarkable. Toxic screen was positive for blood alcohol level of 17 mg/dL. DISCHARGE MEDICATIONS: He was discharged home to go to go on Aspirin 81 mg once a day, NovoLog insulin 4 units before meals and 14 units of Levemir at bedtime and omeprazole 20 mg once a day. FINAL DISCHARGE DIAGNOSES: Alcohol intoxication, alcohol withdrawal, probably alcohol-induced gastritis, history of alcohol-induced pancreatitis and alcohol-induced liver disease, hypertension and type 2 diabetes mellitus. NATACHA MIRANDA MD DR: SMILEY/giulia JOB#: [id number] / [id number]
== END 2019-02-09 16:45 | disposition home or self-care (01) | DRG 433 ==
LOC: ER 04:37 → 1 SOUTH 05:00
PROVIDERS: ADMIT Internal Medicine; ATTEND Internal Medicine
DX: K70.9 Alcoholic liver disease, unspecified (principal); F10.239 Alcohol dependence with withdrawal, unspecified; K86.0 Alcohol-induced chronic pancreatitis; K29.20 Alcoholic gastritis without bleeding; J44.9 Chronic obstructive pulmonary disease, unspecified; I25.10 Atherosclerotic heart disease of native coronary artery without angina pectoris; F32.9 Major depressive disorder, single episode, unspecified; E86.0 Dehydration; I10 Essential (primary) hypertension; E11.9 Type 2 diabetes mellitus without complications; F10.229 Alcohol dependence with intoxication, unspecified; Z90.49 Acquired absence of other specified parts of digestive tract; Z87.891 Personal history of nicotine dependence; Z88.0 Allergy status to penicillin; Z79.4 Long term (current) use of insulin; Z79.899 Other long term (current) drug therapy
CPT/HCPCS: 36415; 74022; 80048; 80053; 80076; 80307; 81001; 82150; 82550; 82947; 83690; 83735; 84484; 85025; 85610; 85730; 93005; 94640; 96365; 96375; G0480; J1815; J2060; J2405; J3490; J7120; J7620; 97110; 99285-25

== ENCOUNTER 2020-01-20 15:23 | Inpatient (IN) | payer MEDICARE, OTHER ==
[~2020-01-20] VITALS: Ht 188 cm; Wt 79.0 kg
[~2020-01-20 15:23] MED LIST changes: +OMEP20CA16 PO; -OMEP20CA9 PO
[2020-01-20] MEDS ORDERED: DEXTROSE 50% 25 GM / 50ML DISP.SYRIN. IV ONE ×2 (15:49→16:00)
[2020-01-20] MEDS ORDERED: FAMOTIDINE 20 MG/2 ML VIAL IVP ONE (16:15)
[2020-01-20] MEDS ORDERED: KETOROLAC 30 MG/ML VIAL. IVP ONE (16:15)
[2020-01-20] MEDS ORDERED: MVI, ADULT NO.4 WITH VIT K 10 ML, FOLIC ACID INJ 1 MG, THIAMINE INJ 100 MG in IV RINGER... IV ONE ×4 (16:15)
[2020-01-20] MEDS ORDERED: ONDANSETRON PF 4 MG/2 ML VIAL. IVP ONE (16:15)
--- NOTE | 2020-01-20 16:34 | PHYS DOC ---
Past History Past Medical History: Alcoholism, Diabetes, Seizure (related to ETOH) Past Surgical History: Appendectomy Additional Past Surgical Histo: Hernia Smoking: Cigarettes, Greater than 1 pack/day, Quit Less Than 1 Year Additional Smoking Information: 3 packs/day Alcohol Use: Heavy Drug Use: Marijuana Adult General Chief Complaint Chief Complaint: NAUSEA/VOMITING/DIARRHEA HPI HPI Patient is a 69 year old male who presents with nausea, vomiting and diarrhea of 1-2 week duration. Patient reports symptoms started after drinking alcohol. He reports constant nausea at baseline that is normally tolerated and attributed to his alcoholism. He presents today because nausea is worse that baseline and he has not been able to eat for 2 days. Patient also has T2DM and is Insulin dependent. Patient states he has not been able to drink fluids without vomiting today. He states last liquid consumed was vodka upon awakening that he immediately threw up. Patient denies sick contacts, cough, or fever. Patient describes vomit as "clear white" having the appearance of "milk". Also has associated RUQ pain. Patient reports his last BG was 120 on 01/18/20 but has not been checked since then. Patient does reports history of seizures related to ETOH. Review of Systems Review of Systems Constitutional: Denies fever. Has had chills. Eyes: Denies redness or eye pain HENT: Denies nasal congestion or sore throat Respiratory: Denies cough or shortness of breath Cardiovascular: Denies chest pain or palpitations GI: Has had RUQ pain, has had diarrhea and vomiting. : Denies dysuria or hematuria Musculoskeletal: Denies back pain or joint pain Integument: Denies rash or skin lesions Neurologic: Denies focal weakness or sensory changes Complete systems were reviewed and found to be within normal limits, except as documented in this note. Current Medications Current Medications Current Medications Medications (Trade) Dose Ordered Sig/Cr Start Time Stop Time Status Last Admin Dose Admin Dextrose (Dextrose 50%-Water Syringe) 25 gm 1X ONCE 01/20/20 16:00 01/20/20 16:01 DC 01/20/20 15:59 25 GM Famotidine (Pepcid Vial) 20 mg 1X ONCE 01/20/20 16:15 01/20/20 16:16 DC Ketorolac Tromethamine (Toradol 30mg Vial) 10 mg 1X ONCE 01/20/20 16:15 3/11/20 16:16 DC Multivitamins/ Minerals 10 ml/ Folic Acid 1 mg/ Thiamine HCl 100 mg/Lactated Ringer's 1,011.3 ml @ 1,011.3 mls/hr 1X ONCE 01/20/20 16:15 01/20/20 17:14 Ondansetron HCl (Zofran) 4 mg 1X ONCE 01/20/20 16:15 01/20/20 16:16 DC Allergies Allergies Allergies Coded Allergies Type Severity Reaction Last Updated Verified Penicillins Allergy Intermediate 06/19/18 Yes Physical Exam Physical Exam Constitutional: Dehydrated, Well developed, mildly distressed HENT: Normocephalic, atraumatic Eyes: PERRL, EOMI, conjunctiva normal, no discharge Neck: Normal range of motion, no tenderness, supple Cardiovascular: Heart rate normal, regular rhythm, BP was 90/50 at time of PE. Lungs & Thorax: Bilateral breath sounds clear to auscultation, no wheezing Abdomen: Soft, Tenderness in RUQ. No peritoneal signs present. Skin: Warm, dry, no erythema, no rash Back: No tenderness, no CVA tenderness Extremities: No tenderness, ROM intact, no edema Neurologic: Alert and oriented X 3, normal motor function, normal sensory fun ction, no focal deficits noted Psychologic: Affect normal, judgment normal Current Patient Data Vital Signs Vital Signs Date Time Temp Pulse Resp B/P (MAP) Pulse Ox O2 Delivery O2 Flow Rate FiO2 01/20/20 15:39 98.1 101 20 91/50 (64) 99 Room Air Lab Results Laboratory Tests Test 01/20/20 15:48 Glucose (Fingerstick) 30 mg/dL (70-99) *L EKG EKG @ 1643. Normal sinus rhythm. HR [address] elevation. Radiology/Procedures Radiology/Procedures [] Course & Med Decision Making Course & Med Decision Making Pertinent Labs reviewed. (See chart for details) Patient presented to the ED today with a 1 week history of nausea, vomiting, and diarrhea. Patient has a history of Alcohol use disorder and T2DM. BG was 30 on admission via finger stick method. D50W was administered to address hypoglycemia along with zofran, pepcid, and ketorolac for nausea and discomfort. Patient reported RUQ pain of 2 weeks duration. Labs were ordered which showed elevated lipase which increased index of suspicion for pancreatitis. Patient reports history of seizures related to ETOH use (assumed DTs?). Patient requiring admission for further evaluation and treatment. Discussed with Dr. Swift (hospitalist) who is in agreement with admission. Discussed findings and plan with patient, who acknowledges understanding and agreement. Dragon Disclaimer Dragon Disclaimer This electronic medical record was generated, in whole or in part, using a voice recognition dictation system. Departure Departure: Impression: Primary Impression: Hypoglycemia Additional Impressions: Pancreatitis Chronic alcohol abuse History of seizure Nausea vomiting and diarrhea Disposition: ADMITTED INPATIENT Admitting Physician: Nathan Swift Condition: GUARDED Referrals: LUISA DE LEON DO (PCP) Critical Care Time Critical care time was 30 minutes which includes time at bedside, spent in discussion of patient's care with specialists and/or family members, with interpretation of laboratory and/or radiological studies and is exclusive of procedures. Problem Qualifiers Additional Impressions: Pancreatitis Chronicity: acute Pancreatitis type: alcohol induced Acute pancreatitis complication: unspecified Qualified Codes: K85.20 - Alcohol induced acute pancreatitis without necrosis or infection MARIAELENA ALANIS DO Jan 20, 2020 16:34
[2020-01-20 17:17] LABS: BASO % 0 % (0-3); EOS % 0 % (0-3); HEMATOCRIT 40.8 % (39.0-53.0); HEMOGLOBIN 12.5 g/dL (13.0-17.5); LYMPH # 0.6 x10^3/uL (1.0-4.8); LYMPH % 10 % (24-48); MEAN CORPUSCULAR HEMOGLOBIN 28 pg (25-35); MEAN CORPUSCULAR HGB CONC 31 g/dL (31-37); MEAN CORPUSCULAR VOLUME 92 fL (79-100); MONO # 0.6 x10^3/uL (0.0-1.1); MONO % 10 % (0-9); NEUT # 4.5 x10^3uL (1.8-7.7); NEUT % 79 % (31-73); PLATELET COUNT 156 x10^3/uL (140-400); RED BLOOD COUNT 4.43 x10^6/uL (4.30-5.70); RED CELL DISTRIBUTION WIDTH 18.8 % (11.5-14.5); WHITE BLOOD COUNT 5.6 x10^3/uL (4.0-11.0)
[2020-01-20 17:28] LABS: CALCIUM 8.1 mg/dL (8.5-10.1); CREATININE 1.6 mg/dL (0.7-1.3); GFR 43.1; POTASSIUM 4.4 mmol/L (3.5-5.1)
[2020-01-20 17:43] LABS: ALBUMIN 3.3 g/dL (3.4-5.0); ALBUMIN/GLOBULIN RATIO 0.9 (1.0-1.7); MAGNESIUM 1.5 mg/dL (1.8-2.4); TOTAL BILIRUBIN 0.8 mg/dL (0.2-1.0); TOTAL PROTEIN 6.8 g/dL (6.4-8.2)
[2020-01-20] MEDS ORDERED: ONDANSETRON PF 4 MG/2 ML VIAL. IVP PRN ×2 (17:45→19:15)
[2020-01-20] MEDS ORDERED: DEXTROSE 50% 25 GM / 50ML DISP.SYRIN. IV PRN (17:45)
--- NOTE | 2020-01-20 17:57 | EKG ---
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
[2020-01-20 18:29] LABS: BARBITURATES NEG (NEG); BENZODIAZEPINES NEG (NEG); CANNABINOIDS POS (NEG); COCAINE NEG (NEG); METHADONE NEG (NEG); OPIATES NEG (NEG); PHENCYCLIDINE NEG (NEG)
[2020-01-20 18:31] LABS: AMPHETAMINE/METHAMPHETAMINE NEG (NEG)
--- NOTE | 2020-01-20 18:45 | NUR ---
ADMISSION: PT ARRIVED TO ICU BED 6 VIA GURNEY, ACCOMPANIED BY [facility]. PT ADMITTED TO ICU STATUS FOR DX: HYPOGLYCEMIA, N/V/D, ETOH DETOX. PT WITH A REPORTED HX OF ALCOHOL RELATED SEIZURES. BED RAILS PADDED FOR SAFETY. TELEMETRY APPLIED, SHOWING SR WITH RATE IN THE 90'S. VS OTHERWISE STABLE. PT A/OX3, DROWSY. VERY AFOGNAK, BUT REPORTS HEARING AIDS ARE NOT CHARGED. POOR HISTORIAN, STATING [facility]" REGARDING PMH AND HOME MEDS. PT LIVES AT HOME ALONE. DECLINES CONTACTING FAMILY REGARDING ADMISSION. PT ON CIWA AND ELECTROLYTE PROTOCOLS. DISCUSSED POC, V/U BUT NEEDS REINFORCEMENT. CALL LIGHT IN REACH. BELONGINGS CHECKED AND LOGGED, LEFT IN ROOM WITH PT.
[2020-01-20 18:46] LABS: CLARITY,URINE HAZY; COLOR,URINE YELLOW
[2020-01-20 18:47] LABS: BILIRUBIN,URINE NEG (NEG); GLUCOSE,URINE NEG (NEG); NITRITE,URINE NEG (NEG); UROBILINOGEN,URINE 0.2 mg/dL (0.2 mg/dL)
[2020-01-20 18:48] LABS: AMORPHOUS SEDIMENT,UR PRESENT /HPF; BACTERIA,URINE 0 /HPF (0-FEW); HYALINE CASTS, URINE FEW /HPF; RBC,URINE 0 /HPF (0-2); SQUAMOUS EPITHELIAL CELL,UR OCC /LPF; WBC,URINE OCC /HPF (0-4)
[2020-01-20 18:58] VITALS: BP 118/67
[2020-01-20] MEDS ORDERED: PROCHLORPERAZINE 10 MG/2 ML VIAL. IVP PRN (19:15)
[2020-01-20] MEDS ORDERED: diphenhydrAMINE HCL 25 MG CAPSULE PO PRN (19:15)
[2020-01-20] MEDS ORDERED: MAGNESIUM SULFATE 2GM 50 ML IV ONE (20:00)
[2020-01-20 21:49] VITALS: BP 131/60
[2020-01-20 22:01] VITALS: BP 143/69
[2020-01-20 23:00] VITALS: BP 126/59
[2020-01-21] VITALS (12 sets, daily range): BP systolic 120–162; BP diastolic 52–80
[2020-01-21] MEDS: IV NORMAL SALINE 1,000ML 1,000 ML IV SCH ×3 (01:30→21:30)
[2020-01-21] MEDS ORDERED: LOSA50TA86 PO (02:13)
[2020-01-21] MEDS ORDERED: TRAZ-125 PO (02:13)
[2020-01-21] MEDS ORDERED: NALT50TA PO (02:13)
[2020-01-21] MEDS ORDERED: INSU100I17 SQ (02:13)
[2020-01-21] MEDS ORDERED: CHOL200078 PO (02:13)
[2020-01-21] MEDS ORDERED: MELA3TAB4 PO (02:13)
[2020-01-21] MEDS ORDERED: TIOT18CA IH (02:13)
[2020-01-21] MEDS ORDERED: BUPR75TA6 PO (02:13)
[2020-01-21] MEDS ORDERED: GABA-586 PO (02:13)
[2020-01-21] MEDS ORDERED: DEXT-217 PO (02:13)
[2020-01-21] MEDS ORDERED: METF500T11 PO (02:13)
[2020-01-21] MEDS ORDERED: BUDE10.2 IH (02:13)
--- NOTE | 2020-01-21 02:16 | NUR ---
CURRENT MED LIST RECEIVED FROM [facility] VIA FAX. MEDS RECONCILED.
[2020-01-21 06:22] LABS: HEMATOCRIT 37.6 % (39.0-53.0); RED BLOOD COUNT 4.21 x10^6/uL (4.30-5.70); RED CELL DISTRIBUTION WIDTH 18.2 % (11.5-14.5); WHITE BLOOD COUNT 6.4 x10^3/uL (4.0-11.0)
[2020-01-21 06:36] LABS: ALBUMIN/GLOBULIN RATIO 0.9 (1.0-1.7); CALCIUM 7.6 mg/dL (8.5-10.1); CREATININE 1.4 mg/dL (0.7-1.3); GFR 50.2; MAGNESIUM 2.1 mg/dL (1.8-2.4); POTASSIUM 4.4 mmol/L (3.5-5.1); TOTAL BILIRUBIN 1.5 mg/dL (0.2-1.0); TOTAL PROTEIN 6.4 g/dL (6.4-8.2)
[2020-01-21] MEDS: INSULIN LISPRO 300 UNITS/3 ML VIAL. SQ SCH ×3 (08:00→17:00)
[2020-01-21] MEDS ORDERED: MVI, ADULT NO.4 WITH VIT K 10 ML, THIAMINE INJ 100 MG, FOLIC ACID INJ 1 MG in IV NORMAL... IV SCH ×4 (09:00)
[2020-01-21] MEDS: NICOTINE 21MG PATCH. TD SCH (09:00)
[2020-01-21] MEDS ORDERED: MORPHINE SULFATE 2 MG/ML DISP.SYRIN. IV PRN (09:15)
[2020-01-21] MEDS ORDERED: IOHEXOL 240 MG/ML 50ML VIAL. ONE (14:54)
[2020-01-21] MEDS ORDERED: IOHEXOL 300 MG/ML 75 ML VIAL. IV ONE (15:00)
--- NOTE | 2020-01-21 15:35 | HP ---
ADMIT DATE: 01/20/2020 HISTORY OF PRESENT ILLNESS: The patient is a 69-year-old -Turkish male from [facility], who presented to the Emergency Room of [facility] with recurrent bouts of nausea, vomiting and diarrhea for 1-2 weeks' duration. He reports symptoms started after drinking alcohol. He reports constant nausea baseline that is normally tolerated and attributes to his alcoholism. He presented because his nausea is worse than baseline. He has not been able to eat for 2 days. He is known to have type 2 diabetes mellitus that is insulin-dependent. He states he has not been able to drink fluids without vomiting. He stated last liquid consumed was vodka upon awakening that he immediately threw up. The patient denies any sick contact, cough or fever and there is no evidence of any blood in the vomitus. He also has right upper quadrant pain and reports his last blood glucose was 120. He has apparently seizures upon withdrawal of alcohol. He was extensively investigated in the Emergency Room, was found to have markedly hypoglycemic with blood sugar of only 30, has impaired kidney function and serum lipase was high at 133. His prothrombin time, INR and aPTT were normal. Urinalysis was unremarkable and toxic screen showed his blood alcohol level of 67 mg/dL. He was admitted for hypoglycemia, acute pancreatitis, chronic alcoholism, history of alcohol withdrawal seizures and recurrent nausea, vomiting and diarrhea and probably acute kidney injury. He was started on banana bag and alcohol withdrawal protocol as well as insulin sliding scale. PAST MEDICAL HISTORY: Significant for type 2 diabetes mellitus insulin requiring, diabetic neuropathy, hypertension, chronic obstructive pulmonary disease, obstructive sleep apnea, osteoarthritis, alcohol withdrawal seizures, and benign prostatic hypertrophy. He has also bilateral sensorineural deafness, requiring bilateral hearing aids. PAST SURGICAL HISTORY: Significant for right inguinal hernia repair, esophagogastroduodenoscopy and colonoscopy. ALLERGIES: HE IS ALLERGIC TO PENICILLIN. MEDICATIONS: He is currently on following medications: He is on tiotropium bromide 1 inhalation once a day, losartan potassium for Cozaar 25 mg daily, aspirin 81 mg once a day, naltrexone 50 mg daily, gabapentin 600 mg at bedtime, Wellbutrin 150 mg daily, trazodone 100 mg at bedtime. He is on Symbicort 160/4.5 two puffs twice a day, omeprazole 20 mg daily, metformin 500 mg twice a day. He is on NovoLog 4 units before meals and NovoLog 5 units before supper. He is on detemir 20 units at bedtime, cholecalciferol 2000 international units 3 times a day, and melatonin 6 mg at bedtime. FAMILY HISTORY: He has one brother at the younger age due to myocardial infarction because he was smoking cocaine. One sister, younger and still alive. Father in his 80s. Mother in her 60s due to diabetic complication. SOCIAL HISTORY: , he has 1 son that has never seen. Smokes one and a half pack a day, used to smoke 3 packs per day, drinks 20 half pints of vodka every day. Use marijuana occasionally. He is a retired . REVIEW OF SYSTEMS: The patient denied any blurring of vision, cataract, glaucoma or macular degeneration. He has bilateral hearing aid. Denied any nosebleeds, stuffy nose or postnasal drip. Denied any sore throat, sore tongue, toothache, hoarseness of voice or difficulty swallowing. He has recurrent bouts of nausea and vomiting, but no hematemesis. No melena or hematochezia. Has loose bowel movements, but no blood in the stool. He has nocturia. Denied any chest pain. Did complain of shortness of breath on exertion, but denied any orthopnea or paroxysmal nocturnal dyspnea. Denied any cough, phlegm or hemoptysis. Denied any chills, rigors or fever. PHYSICAL EXAMINATION: GENERAL: On arrival to the Emergency Room, he looked well and was clearly in no apparent respiratory distress. No pallor, jaundice, cyanosis or thyromegaly. No jugular venous distention. No limb edema. VITAL SIGNS: Heart rate was 88, blood pressure 145/71, temperature was 98.7, respiratory rate was 15 and oxygen saturation was 98%. HEAD, EYES, EARS, NOSE AND THROAT: Normocephalic, atraumatic. NECK: Supple. HEART: Showed normal first and second heart sounds. No gallop or murmur. CHEST: Clear to auscultation. No crepitation or rhonchi. ABDOMEN: Distended, soft, tenderness mostly in the right upper quadrant. Bowel sounds are normal. NEUROLOGIC: He was awake, alert, responding appropriately. All cranial nerves intact. EXTREMITIES: He moves extremities without difficulty. LABORATORY DATA: On admission showed a white cell count 5600, hemoglobin 12.5, hematocrit 40, MCV 92, and platelet count of 156,000. His chemistry showed a serum sodium 143, potassium 4.4, chloride 100, bicarbonate 14, anion gap of 29, BUN 25, creatinine 1.6, estimated GFR was 43 mL per minute, his glucose 130, calcium was 8.1, magnesium was 1.5. Total bilirubin, AST, ALT, alkaline phosphatase were normal. Total protein was 6.8, albumin 3.3. Lipase was 833. His prothrombin time 9.8, INR 0.9, aPTT was 22. Urinalysis showed the urine was yellow, hazy with a pH of 5.5, specific gravity of 1.030. There was large amount of protein. The urine was negative for glucose, ketones, blood, nitrite and leukocyte esterase. There is no rbc's, no wbc's. Toxic screen showed that his blood alcohol level was 67 mg/dL. IMPRESSION: In summary, this is a 69-year-old -Turkish male patient who was admitted with hypoglycemia, acute pancreatitis, chronic alcohol abuse, history of alcohol withdrawal seizures, recurrent bouts of nausea, vomiting and acute kidney injury. Has also high anion gap metabolic acidosis and hypomagnesemia. The patient was admitted and was started on alcohol withdrawal protocol, started on a banana bag, insulin sliding scale. He has received also magnesium sulfate 2 grams once, was admitted to continue with alcohol withdrawal protocol. NATACHA MIRANDA MD DR: SMILEY/giulia JOB#: [id number] / [id number]
[2020-01-21] MEDS ORDERED: CONTRAST GIVEN MC PRN (16:00)
--- NOTE | 2020-01-21 17:28 | RAD ---
EXAM: CT Abdomen and Pelvis with IV contrast CLINICAL HISTORY: ABDOMINAL PAIN AND ELEVATED LIPASE. COMPARISON: none TECHNIQUE: Helical CT of the abdomen and pelvis was performed following the administration of IV contrast. Axial, coronal and sagittal reformatted images were generated. ---PQRS compliance statement - One or more of the following individualized dose reduction techniques were utilized for this study: 1. Automated exposure control 2. Adjustment of the mA and/or kV according to patient size 3. Use of iterative reconstruction technique--- FINDINGS: Lower chest: Coronary artery calcifications are seen. Linear opacities in the lingula, lobe and lower lobes likely scarring/atelectasis. Background of emphysematous change. Abdomen and pelvis: Liver and biliary system: Mild hepatic hypoattenuation consistent with fatty liver. Liver is borderline enlarged in size measuring 18.1 cm. High density material within the gallbladder likely sludge. No biliary ductal dilatation. Spleen: Unremarkable Pancreas: Calcifications within the pancreatic head and uncinate process likely from chronic pancreatitis. However there is edema and mild infiltration about the pancreatic body and tail consistent with acute pancreatitis. Homogenous enhancement of the pancreas without regions of discrete edema/ischemia. Adrenal glands: Unremarkable Kidneys: Symmetric nephrograms. Left lower pole renal cystic lesion is seen. No hydronephrosis. No hydroureter. Lymph nodes/retroperitoneum: No abdominal or pelvic lymphadenopathy. Vessels: Aorta is normal in caliber with atherosclerotic calcifications of aorta and main branches. Bowel/Peritoneal cavity: Moderate colonic stool content is seen. No small or large bowel dilatation. No bowel obstruction. No abdominal or pelvic ascites. Abdominal wall: Fat-containing periumbilical hernia is seen. Fat-containing right inguinal hernia. Bladder: Diffuse bladder wall thickening likely cystitis. Bones: Degenerative changes of the spine are seen. The femoral heads maintain normal sphericity and density without evidence for femoral head osteonecrosis. Mild wedging deformity centrally of the T11 and T12 vertebral bodies likely Schmorl's nodes. IMPRESSION: 1. Infiltration about the pancreas consistent with acute pancreatitis without associated loculated fluid collections or evidence for ischemia/necrosis. 2. Fatty liver 3. Gallbladder sludge without CT evidence for acute cholecystitis. Electronically signed by: Jeremy Laurent MD (01/21/2020 5:25 PM) [id number]
--- NOTE | 2020-01-21 17:52 | PN ---
DATE: SUBJECTIVE: The patient is resting, slightly propped up in bed, no apparent distress. He has no further episodes of nausea, vomiting or diarrhea, but continued to complain of abdominal pain, mostly in the epigastric and right upper quadrant pain. PHYSICAL EXAMINATION: GENERAL: When I examined him today, he looked well and was clearly in no apparent respiratory distress. No pallor, jaundice, cyanosis or thyromegaly. No jugular venous distention. No limb edema. VITAL SIGNS: His heart rate was 82, blood pressure was 162/74, temperature was 98.7, respiratory rate was 19 and oxygen saturation was 95% on room air. HEAD, EYES, EARS, NOSE AND THROAT: Showed normocephalic, atraumatic. NECK: Supple. HEART: Normal first and second heart sounds. No gallop or murmur. CHEST: Clear to auscultation. No crepitation or rhonchi. ABDOMEN: Distended. Tenderness mostly in the epigastric and right upper quadrant. There is no guarding or rigidity. No organomegaly. All hernial orifices intact. Bowel sounds normal. NEUROLOGIC: He is awake, alert, responding appropriately. All cranial nerves are intact. He moves extremities without difficulty. His intake and output are incompletely recorded. LABORATORY DATA: His lab work this morning showed serum sodium was 139, potassium 4.4, chloride 102, bicarbonate 25, anion gap of 12, BUN 30, creatinine 1.4, estimated GFR was 50 mL per minute, his glucose was 213, calcium 7.1, magnesium was 2.1. Total bilirubin, AST, ALT, alkaline phosphatase were normal. Total protein was 6.4, albumin was 3 and lipase was 783. PT, INR and aPTT were normal. PLAN: To continue with alcohol withdrawal protocol. We will arrange for him to have a CT scan of the abdomen and pelvis with oral IV contrast and decide the further management accordingly. NATACHA MIRANDA MD DR: SMILEY/giulia JOB#: [id number] / [id number]
[2020-01-22 00:28] VITALS: BP 134/75
[2020-01-22 04:55] VITALS: BP 157/85
[2020-01-22 06:23] LABS: HEMATOCRIT 38.5 % (39.0-53.0); HEMOGLOBIN 12.3 g/dL (13.0-17.5); RED BLOOD COUNT 4.27 x10^6/uL (4.30-5.70); WHITE BLOOD COUNT 4.4 x10^3/uL (4.0-11.0)
[2020-01-22 06:37] LABS: ALBUMIN 3.1 g/dL (3.4-5.0); ALBUMIN/GLOBULIN RATIO 0.9 (1.0-1.7); CALCIUM 7.7 mg/dL (8.5-10.1); CREATININE 0.9 mg/dL (0.7-1.3); GFR 83.7; MAGNESIUM 1.8 mg/dL (1.8-2.4); POTASSIUM 3.8 mmol/L (3.5-5.1); TOTAL BILIRUBIN 1.2 mg/dL (0.2-1.0); TOTAL PROTEIN 6.7 g/dL (6.4-8.2)
[2020-01-22] MEDS: IV NORMAL SALINE 1,000ML 1,000 ML IV SCH (07:30)
[2020-01-22] MEDS: NICOTINE 21MG PATCH. TD SCH (07:51)
[2020-01-22] MEDS: INSULIN LISPRO 300 UNITS/3 ML VIAL. SQ SCH ×2 (07:54→12:00)
--- NOTE | 2020-01-22 09:00 | NUR ---
Patient states he is feeling much better today and is hoping to discharge home. Denies nausea or abdominal pain today.
[2020-01-22 09:35] VITALS: BP 152/77
[2020-01-22] MEDS ORDERED: THIAMINE 100 MG TABLET. PO SCH (11:00)
[2020-01-22] MEDS ORDERED: MULTIVITAMIN with MINERAL TABLET. PO SCH (11:00)
[2020-01-22] MEDS ORDERED: FOLIC ACID 1 MG TABLET PO SCH (11:00)
--- NOTE | 2020-01-22 13:03 | NUR ---
Patient ambulated off unit at this time with staff member and will be transfering via [facility] with patient. Patient verbalized Discharge instructions given and stated he would like to take insulin when he arrived home. Explained to follow up with PCP in 7-10 days or if symptoms worsen.
--- NOTE | 2020-01-22 21:09 | DS ---
DATE OF DISCHARGE: HOSPITAL COURSE: The patient is a 69-year-old male patient who was admitted through the Emergency Department on 01/20/2020. He currently lives at [facility] [place] and presented to Emergency Department with recurrent bouts of nausea, vomiting and diarrhea for the last 1-2 weeks. He reports symptoms started after drinking alcohol. He reports he is constantly nauseous. He was extensively investigated and was found to have impaired kidney function and also elevated liver enzyme. His lipase was 833. His kidney function also was impaired. His creatinine was up to 1.6 and basically he was started on a banana bag and alcohol withdrawal protocol and we did actually CT scan of the abdomen and pelvis, which basically showed that the patient has mild hepatic hypoattenuation consistent with fatty liver, liver is borderline enlarged in size measuring about 18.1 cm, high density material within the gallbladder likely sludge, no biliary ductal dilatation. Spleen is unremarkable. The pancreas showed calcification within the pancreatic head and uncinate process likely from chronic pancreatitis; however, there is edema and mild infiltration about the pancreatic body and tail consistent with acute pancreatitis, homogenous enhancement of the pancreas without lesion or discrete edema or ischemia. The patient's pain has subsided, has had no further nausea, no vomiting and has been tolerating his diet. His kidney function normalized and his lipase has normalized and a decision was made to discharge him home. We had obviously a lengthy discussion with him to quit drinking. PHYSICAL EXAMINATION: GENERAL: When I saw him today, he looked well and was clearly in no apparent respiratory distress. No pallor, jaundice, cyanosis or thyromegaly. No jugular venous distention. No lower limb edema. VITAL SIGNS: His heart rate was 58, blood pressure was 152/77, temperature was 98.4, respiratory rate was 17 and oxygen saturation was 97% on room air. HEAD, EYES, EARS, NOSE AND THROAT: Showed normocephalic, atraumatic. NECK: Supple. HEART: Showed normal first and second heart sounds. No gallop, rub or murmur. CHEST: Clear to auscultation. No crepitation or rhonchi. ABDOMEN: Distended, soft, nontender. NEUROLOGIC: He was awake, alert, responding appropriately. All cranial nerves are intact. He moves extremities without difficulty, ambulates without assistance or assistive devices. His intake was 1400, no output was recorded. LABORATORY DATA: His lab work this morning showed a serum sodium 139, potassium 3.8, chloride 101, bicarbonate 26, anion gap of 12, BUN 12, creatinine 0.9, estimated GFR was 83 mL per minute. His glucose 175, calcium was 7.7, magnesium was 1.8. Total bilirubin, AST, ALT, alkaline phosphatase were normal. Total protein was 6.7, albumin was 3.1. White cell count was 4400, hemoglobin 12.3, hematocrit 38, MCV 90 and platelet count of 109,000. DISCHARGE MEDICATIONS: The patient was discharged home to continue on aspirin 81 mg once a day, Symbicort 2 puffs twice a day, Wellbutrin 150 mg once a day, vitamin D3 1000 units 3 times a day. He is on gabapentin 600 mg at bedtime, NovoLog insulin 4 units before breakfast and lunch and 5 units before supper. He is on detemir 20 units at bedtime, losartan potassium 25 mg daily, melatonin 6 mg at bedtime, metformin 500 mg daily, naltrexone 50 mg daily, omeprazole 20 mg daily, tiotropium bromide for Spiriva HandiHaler 1 inhalation once a day, trazodone 100 mg once a day. FINAL DISCHARGE DIAGNOSES: 1. Acute on chronic alcohol-induced pancreatitis. 2. Alcohol dependence. 3. Type 2 diabetes mellitus, insulin requiring. 4. Diabetic neuropathy. 5. Hypertension. 6. Chronic obstructive pulmonary disease with obstructive sleep apnea. 7. Osteoarthritis. 8. Benign prostatic hypertrophy. 9. Bilateral sensorineural deafness, requiring bilateral hearing aids. NATACHA MIRANDA MD DR: SMILEY/giulia JOB#: [id number] / [id number]
== END 2020-01-22 13:05 | disposition home or self-care (01) | DRG 682 ==
LOC: ER 15:23 → ICU 17:42
PROVIDERS: ADMIT Internal Medicine; ATTEND Internal Medicine
DX: N17.9 Acute kidney failure, unspecified (principal); K85.20 Alcohol induced acute pancreatitis without necrosis or infection; E87.2 Acidosis; K86.0 Alcohol-induced chronic pancreatitis; E11.649 Type 2 diabetes mellitus with hypoglycemia without coma; E11.40 Type 2 diabetes mellitus with diabetic neuropathy, unspecified; E83.42 Hypomagnesemia; F10.20 Alcohol dependence, uncomplicated; F12.90 Cannabis use, unspecified, uncomplicated; F17.210 Nicotine dependence, cigarettes, uncomplicated; G47.33 Obstructive sleep apnea (adult) (pediatric); H90.5 Unspecified sensorineural hearing loss; I10 Essential (primary) hypertension; J44.9 Chronic obstructive pulmonary disease, unspecified; M19.90 Unspecified osteoarthritis, unspecified site; N28.9 Disorder of kidney and ureter, unspecified; N40.0 Benign prostatic hyperplasia without lower urinary tract symptoms; R56.9 Unspecified convulsions; Y90.3 Blood alcohol level of 60-79 mg/100 ml; Z79.4 Long term (current) use of insulin; Z82.49 Family history of ischemic heart disease and other diseases of the circulatory system; Z83.3 Family history of diabetes mellitus; Z90.49 Acquired absence of other specified parts of digestive tract; Z97.4 Presence of external hearing-aid; Z88.0 Allergy status to penicillin
CPT/HCPCS: 36415; 74177; 80053; 80307; 81001; 82553; 82947; 83690; 83735; 84484; 85025; 85027; 85610; 85730; 93005; 96365; 96366; 96375; G0480; J0780; J1815; J1885; J2270; J2405; J3475; J3490; J7120; Q9967; 99291-25; J7030

== ENCOUNTER 2021-08-22 23:51 | Inpatient (IN) | payer MEDICARE, OTHER ==
[~2021-08-22] VITALS: Ht 188 cm; Wt 72.6 kg
[~2021-08-22 23:51] MED LIST changes: +BUDE10.2 IH; +BUPR75TA6 PO; +CHOL200078 PO; +DEXT4TAB20 PO; +GABA-586 PO; +LOSA50TA86 PO; +MELA3TAB4 PO; +METF-658 PO; +NALT50TA PO; +TIOT18CA IH; +TRAZ-125 PO
--- NOTE | 2021-08-23 00:19 | PHYS DOC ---
Past History Past Medical History: Alcoholism, Diabetes, Hypertension, Pancreatitis, Seizure Past Surgical History: Appendectomy Additional Past Surgical Histo: Hernia Smoking: Cigarettes, Greater than 1 pack/day, Quit Less Than 1 Year Alcohol Use: Heavy Drug Use: Marijuana General Adult EDM: Chief Complaint: ABDOMINAL PAIN HPI: HPI: 71-year-old male presents with report of generalized abdominal pain which has be en ongoing for the past 2 days. Reports associated nausea and vomiting. Patient does have a history of chronic pancreatitis. Patient does report use/abuse of alcohol. Patient reports he has continued to drink. Patient reportedly has history of seizures that is presumed to be secondary to alcohol withdrawal. Denies fever or chills. Denies known exposure to COVID-19. Patient does report vaccination for COVID-19. Review of Systems: Review of Systems: Constitutional: Denies fever or chills; reports generalized malaise Eyes: Denies redness or eye pain HENT: Denies nasal congestion or sore throat Respiratory: Denies cough or shortness of breath Cardiovascular: Denies chest pain or palpitations GI: Reports abdominal pain, nausea, and vomiting : Denies dysuria or hematuria Musculoskeletal: Denies back pain or joint pain Integument: Denies rash or skin lesions Neurologic: Denies headache, focal weakness or sensory changes Complete systems were reviewed and found to be within normal limits, except as documented in this note. Current Medications: Current Meds: Current Medications Medications (Trade) Dose Ordered Sig/Cr Start Time Stop Time Status Last Admin Dose Admin Famotidine (Pepcid Vial) 20 mg 1X ONCE 08/23/21 00:30 08/23/21 00:31 Iohexol (Omnipaque 300 Mg/ml) 75 ml 1X ONCE 08/23/21 00:30 08/23/21 00:31 Ketorolac Tromethamine (Toradol 15mg Vial) 15 mg 1X ONCE 08/23/21 00:30 08/23/21 00:31 Multivitamins/ Minerals 10 ml/ Thiamine HCl 100 mg/Sodium Chloride 1,011.3 ml @ 1,000.187 mls/hr 1X ONCE 08/23/21 00:30 08/23/21 01:30 Ondansetron HCl (Zofran) 4 mg 1X ONCE 08/23/21 00:30 08/23/21 00:31 Allergies: Allergies: Allergies Coded Allergies Type Severity Reaction Last Updated Verified Penicillins Allergy Intermediate 08/23/21 Yes Physical Exam: PE: Constitutional: Well developed, well nourished, uncomfortable, non-toxic appearance HENT: Normocephalic, atraumatic Eyes: Conjunctiva mildly injected, no discharge Neck: Normal range of motion, supple Lungs & Thorax: No respiratory distress, equal chest rise and fall Abdomen: Soft, left upper quadrant tenderness, no guarding/rebound tenderness Skin: Warm, dry, no erythema, no rash Back: No tenderness, no CVA tenderness Extremities: No tenderness, ROM intact, no edema Neurologic: Alert and oriented X 3, no focal deficits noted Psychologic: Affect normal, judgment normal Current Patient Data: Vital Signs: Vital Signs Date Time Temp Pulse Resp B/P (MAP) Pulse Ox O2 Delivery O2 Flow Rate FiO2 08/23/21 00:11 97.7 89 18 169/98 (121) 97 Room Air EKG: EKG: @0016 NSR at 83bpm, NO ST elevation, QRS 94ms, QT/QTc 412/485ms, Radiology/Procedures: Radiology/Procedures: PROCEDURE: CT ABD PELV W/ IV CONTRST ONLY CT ABDOMEN+PELVIS W History: Reason: upper abdominal pain,. N/V / Spl. Instructions: / History: Technique: After the administration of intravenous contrast, CT imaging was performed of the abdomen and pelvis. Multiplanar images are reviewed. Exposure: One or more of the following individualized dose reduction techniques were utilized for this examination: 1. Automated exposure control 2. Adjustment of the mA and/or kV according to patient size 3. Use of iterative reconstruction technique. Comparison: January 21, 2020 Findings: Lower chest: Mild right middle lobe and right lower lobe lingular atelectasis with elevation the right hemidiaphragm. Abdomen and pelvis: Severe hepatic steatosis. The spleen, and adrenal glands are unremarkable. No renal calculus. Small left inferior renal cyst. No hydronephrosis. Unremarkable appearance of the urinary bladder. Probable gallb ladder sludge. Pancreatic atrophy with pancreatic head calcifications. Severe peripancreatic edema with unorganized fluid. Pancreatic head and neck edema. Pancreatic ductal dilatation. Edema extends inferiorly adjacent to the duodenum and other small bowel loops. There is edema extending to the stomach. Mild reactive wall thickening of the gastric antrum and duodenum. No fluid collections identified. Enlarged heterogeneous appearance of the prostate measures 5.0 x 4.4 cm. Normal appendix. No evidence of bowel obstruction. Small upper abdominal lymph nodes. Fat-containing umbilical hernia measures 3.1 x 2.9 cm with fascial defect m easuring 1.6 cm. Atheromatous plaque throughout the nonaneurysmal abdominal aorta and branch vessels. Bones: Chronic T11-T12 superior plate compression deformities, unchanged. Impression: 1. Acute on chronic pancreatitis with severe peripancreatic edema and unorganized fluid. 2. Mild reactive gastric and duodenal wall thickening. 3. Probable gallbladder sludge. 4. Severe hepatic steatosis. 5. Enlarged heterogeneous prostate. Recommend correlation with PSA. Electronically signed by: Ovi Li DO (08/23/2021 2:09 AM) [facility] Heart Score: C/O Chest Pain: N/A Course & Med Decision Making: Course & Med Decision Making Pertinent Labs and Imaging studies reviewed. (See chart for details) Patient presents with HPI and physical exam concerning for chronic alcohol induced pancreatitis. Symptomatic treatment provided. Banana bag given. Labs obtained and posted to chart. Lipase almost 6000. Alcohol 47. Hypokalemia and hypomagnesemia addressed. CT imaging also confirms signs of acute on chronic pancreatitis. Patient requiring admission for further evaluation and treatment. Discussed with Dr. Swift (hospitalist) who is in agreement with admission. Discussed findings and plan with patient, who acknowledges understanding and agreement. Roro Disclaimer: Roro Disclaimer: This electronic medical record was generated, in whole or in part, using a voice recognition dictation system. Departure Departure: Impression: Primary Impression: Acute on chronic pancreatitis Additional Impressions: Alcohol abuse Hypokalemia Hypomagnesemia Disposition: ADMITTED INPATIENT Admitting Physician: Nathan Swift Condition: STABLE Referrals: LUISA DE LEON DO (PCP) MARIAELENA ALANIS DO Aug 23, 2021 00:19
[2021-08-23] MEDS ORDERED: IOHEXOL 300 MG/ML 75 ML VIAL. IV ONE (00:30)
[2021-08-23] MEDS ORDERED: MVI, ADULT NO.4 WITH VIT K 10 ML, THIAMINE INJ 100 MG in IV NORMAL SALINE 1,000ML 1,000... IV ONE (00:30)
[2021-08-23] MEDS ORDERED: FAMOTIDINE 20 MG/2 ML VIAL IVP ONE (00:30)
[2021-08-23] MEDS ORDERED: ONDANSETRON PF 4 MG/2 ML VIAL. IVP ONE ×2 (00:30→03:00)
[2021-08-23] MEDS ORDERED: CONTRAST GIVEN. MC PRN (00:30)
[2021-08-23] MEDS ORDERED: KETOROLAC 15 MG/ML VIAL. IVP ONE (00:30)
--- NOTE | 2021-08-23 00:37 | EKG ---
[address] [address] Test Date: 2021-08-23 Test Time: 00:16:21 Pat Name: ARIELA SANTILLAN Department: Room: Gender: M Flow Floor Attendant: melvin user : [id number] Requested By: MARIAELENA ALANIS Order Number: [id number] Reading MD: Sudhakar Burgess MD Measurements Intervals [place] Rate: 83 P: 43 AK: 150 QRS: 29 QRSD: 94 T: 47 QT: 412 QTc: 485 Interpretive Statements SINUS RHYTHM Electronically Signed On 08-28-2021 11:46:24 CDT by Sudhakar Burgess MD
[2021-08-23] MEDS ORDERED: MVI, ADULT NO.4 WITH VIT K 10 ML VIAL IV ONE (01:06)
[2021-08-23] MEDS ORDERED: THIAMINE 200 MG/2 ML VIAL. IV ONE (01:08)
[2021-08-23 01:28] LABS: BASO % 1 % (0-3); EOS # 0.2 x10^3/uL (0.0-0.7); EOS % 3 % (0-3); HEMATOCRIT 43.1 % (39.0-53.0); LYMPH # 0.9 x10^3/uL (1.0-4.8); LYMPH % 17 % (24-48); MEAN CORPUSCULAR HEMOGLOBIN 29 pg (25-35); MEAN CORPUSCULAR HGB CONC 33 g/dL (31-37); MEAN CORPUSCULAR VOLUME 89 fL (79-100); MONO # 0.4 x10^3/uL (0.0-1.1); MONO % 8 % (0-9); NEUT # 3.9 x10^3uL (1.8-7.7); NEUT % 71 % (31-73); PLATELET COUNT 113 x10^3/uL (140-400); RED BLOOD COUNT 4.83 x10^6/uL (4.30-5.70); RED CELL DISTRIBUTION WIDTH 14.4 % (11.5-14.5); WHITE BLOOD COUNT 5.4 x10^3/uL (4.0-11.0)
[2021-08-23 01:36] LABS: CALCIUM 8.5 mg/dL (8.5-10.1); CREATININE 0.7 mg/dL (0.7-1.3); GFR 111.2; POTASSIUM 3.1 mmol/L (3.5-5.1)
[2021-08-23 01:51] LABS: ALBUMIN 3.2 g/dL (3.4-5.0); ALBUMIN/GLOBULIN RATIO 0.9 (1.0-1.7); MAGNESIUM 1.4 mg/dL (1.8-2.4); TOTAL BILIRUBIN 0.7 mg/dL (0.2-1.0); TOTAL PROTEIN 6.6 g/dL (6.4-8.2)
--- NOTE | 2021-08-23 02:11 | RAD ---
CT ABDOMEN+PELVIS W History: Reason: upper abdominal pain,. N/V / Spl. Instructions: / History: Technique: After the administration of intravenous contrast, CT imaging was performed of the abdomen and pelvis. Multiplanar images are reviewed. Exposure: One or more of the following individualized dose reduction techniques were utilized for thi s examination: 1. Automated exposure control 2. Adjustment of the mA and/or kV according to patient size 3. Use of iterative reconstruction technique. Comparison: January 21, 2020 Findings: Lower chest: Mild right middle lobe and right lower lobe lingular atelectasis with elevation the righ t hemidiaphragm. Abdomen and pelvis: Severe hepatic steatosis. The spleen, and adrenal glands are unremarkable. No linda al calculus. Small left inferior renal cyst. No hydronephrosis. Unremarkable appearance of the urinar y bladder. Probable gallbladder sludge. Pancreatic atrophy with pancreatic head calcifications. Severe peripancreatic edema with unorganized fluid. Pancreatic head and neck edema. Pancreatic ductal dilatation. Edema extends inferiorly adjacen t to the duodenum and other small bowel loops. There is edema extending to the stomach. Mild reactive wall thickening of the gastric antrum and duodenum. No fluid collections identified. Enlarged heterogeneous appearance of the prostate measures 5.0 x 4.4 cm. Normal appendix. No evidence of bowel obstruction. Small upper abdominal lymph nodes. Fat-containing umbilical hernia measures 3. 1 x 2.9 cm with fascial defect measuring 1.6 cm. Atheromatous plaque throughout the nonaneurysmal abd ominal aorta and branch vessels. Bones: Chronic T11-T12 superior plate compression deformities, unchanged. Impression: 1. Acute on chronic pancreatitis with severe peripancreatic edema and unorganized fluid. 2. Mild reactive gastric and duodenal wall thickening. 3. Probable gallbladder sludge. 4. Severe hepatic steatosis. 5. Enlarged heterogeneous prostate. Recommend correlation with PSA. Electronically signed by: Ovi Li DO (08/23/2021 2:09 AM) [facility]
[2021-08-23] MEDS ORDERED: MAGNESIUM SULFATE 2GM 50 ML IV ONE (03:00)
[2021-08-23] MEDS ORDERED: POTASSIUM CHLORIDE 20 MEQ TABLET.ER. PO ONE (03:00)
[2021-08-23] MEDS ORDERED: DEXTROSE 50% 25 GM / 50ML DISP.SYRIN. IV PRN (03:15)
[2021-08-23] MEDS ORDERED: ONDANSETRON PF 4 MG/2 ML VIAL. IVP PRN (03:15)
[2021-08-23] MEDS ORDERED: IV NORMAL SALINE 1,000ML 1,000 ML IV ONE (03:30)
[2021-08-23 03:36] LABS: BACTERIA,URINE 0 /HPF (0-FEW); BARBITURATES NEG (NEG); BENZODIAZEPINES NEG (NEG); BILIRUBIN,URINE NEG (NEG); CANNABINOIDS NEG (NEG); CLARITY,URINE CLEAR; COCAINE NEG (NEG); COLOR,URINE YELLOW; GLUCOSE,URINE NEG (NEG); METHADONE NEG (NEG); NITRITE,URINE NEG (NEG); OPIATES NEG (NEG); PHENCYCLIDINE NEG (NEG); RBC,URINE OCC /HPF (0-2); SQUAMOUS EPITHELIAL CELL,UR OCC /LPF; UROBILINOGEN,URINE 0.2 mg/dL (0.2 mg/dL); WBC,URINE OCC /HPF (0-4)
[2021-08-23 03:40] LABS: AMPHETAMINE/METHAMPHETAMINE NEG (NEG)
[2021-08-23 04:42] VITALS: BP 174/79
--- NOTE | 2021-08-23 04:45 | NUR ---
ADMISSION: The patient, ARIELA SANTILLAN, 71 y/o, M admitted by NATACHA MIRANDA MD, was given written information regarding hospital policies, unit procedures and contact persons. Pt arrived to room 122 via gurney, accompanied by [facility] and ED staff. Pt here for c/o N/V and abdominal pain x2 days. Dx: acute on chronic pancreatitis, ETOH abuse. Pt admits to long history of drinking and typically consumes 1-2 pints of vodka per day, with last drink being approx. 1700 yesterday. Pt lives at home alone and does not wish to have any family or friends involved in his care. A/Ox4, ambulatory. CIWA protocol in place. Discussed POC, V/U. Call light in reach. Valuables were checked and logged. Pt normally wears glasses and bilateral hearing aids but did not bring them with him.
[2021-08-23 06:26] VITALS: BP 163/86
[2021-08-23] MEDS: INSULIN LISPRO 300 UNITS/3 ML VIAL. SQ SCH ×3 (08:00→17:00)
--- NOTE | 2021-08-23 09:58 | HP ---
ADMIT DATE: 08/23/2021 ATTENDING PHYSICIAN: Dr. Rodriguez. CHIEF COMPLAINT: Abdominal pain. HISTORY OF PRESENT ILLNESS: The patient is a 71-year-old gentleman with chronic alcoholism. He has a 2-day history of abdominal pain. He has had evidence of pancreatitis. CT showed pancreatic inflammation and atrophy which is acute on chronic pancreatitis. He has no blockage. His lipase is elevated over 5000. He was admitted for further treatment and evaluation. PAST MEDICAL HISTORY: Significant for chronic alcoholism. He continues to drink. He is a smoker. He has COPD, hypertension, pancreatitis, noncompliance, alcohol withdrawal seizures and diabetes. He normally follows at the [facility]. CURRENT MEDICATIONS: Reviewed. He takes aspirin, budesonide, bupropion, vitamin D, Neurontin, insulin regular, Levemir, losartan, melatonin, metformin, omeprazole, Spiriva, and trazodone. Whether he is compliant with these meds remains to be seen. FAMILY HISTORY: Mom of complication of diabetes at age 76. Father of COPD and respiratory failure at age 78. SOCIAL HISTORY: He smokes, he drinks, he does recreational drugs. In addition, he is retired. REVIEW OF SYSTEMS: Significant for the nausea and abdominal pain. He has had his COVID injections. All other systems reviewed and turned to be negative. PHYSICAL EXAMINATION: GENERAL: When I saw him, this is a pleasant elderly gentleman. He was actually hungry, asking for food. VITAL SIGNS: His initial vital signs showed a blood pressure of 174/79, pulse is 86 and regular. He was afebrile, oxygen saturation 96% on room air. HEENT: Head is without trauma. Pupils are reactive. Sclerae nonicteric. The oropharynx is clear. NECK: Supple, no bruits identified. LUNGS: Minimal wheezing. CARDIOVASCULAR: Showed distant heart tones. No gallop. ABDOMEN: Diffuse, tenderness to palpation. No guarding. There is some swelling. No masses palpated. EXTREMITIES: Without edema. NEUROLOGIC: Focally intact. Speech is fluent. No impending DTs at this time. LABORATORY DATA: His alcohol level was 47 on admission. Serology negative for coronavirus. Hemoglobin 14.0 grams, white count 5400. Lipase level was 5940. Transaminases normal. Creatinine within normal range. Nonfasting blood sugar 136 mg/dL, potassium 3.1 mEq. ASSESSMENT: 1. A 71-year-old gentleman with acute on chronic pancreatitis. 2. Continued alcohol abuse. 3. Chronic alcoholism. 4. Chronic obstructive pulmonary disease. 5. Hypertension. 6. 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 7. Asymptomatic hypokalemia. PLAN: 1. Admit to the inpatient unit. 2. N.p.o. 3. Pain and nausea control. 4. Gentle IV hydration. 5. Follow up chemistries as scheduled. LISA DR: Davis TID: [id number]
[2021-08-23 11:09] VITALS: BP 183/91
[2021-08-23 15:17] VITALS: BP 160/85
[2021-08-23 19:10] VITALS: BP 171/80
[2021-08-23 23:15] VITALS: BP 164/87
--- NOTE | 2021-08-24 05:02 | NUR ---
Ate 100% boxed lunch at approx 2000 without difficulty; HS bedside glucose 263 mg/dl; no complaints of nausea and/or pain thus far this shift; CIWA scale 0; VSS, diagnostic cardiac sonographer shows NSR with occasional PAC's; pleasant, talkative, sitting up in bed at present watching tv; no voiced needs or concerns at this time.
[2021-08-24 05:15] VITALS: BP 179/89
[2021-08-24] MEDS: INSULIN LISPRO 300 UNITS/3 ML VIAL. SQ SCH (08:04)
--- NOTE | 2021-08-24 08:56 | NUR ---
Discharge Pt discharged by Dr. Rodriguez. Pt verbalized understanding of all DC paperwork and prescriptions. All questions addressed. Pt GCS 15, VSS and ambulatory at discharge. Escorted to van down by ER by security. ESPERANZA, RN
--- NOTE | 2021-08-24 11:05 | DS ---
DATE OF DISCHARGE: 08/24/2021 ATTENDING PHYSICIAN: Dr. Rodriguez. FINAL DISCHARGE DIAGNOSES: 1. Acute on chronic pancreatitis. 2. Continued tobaccoism. 3. Chronic alcoholism. 4. Hypertension. 5. Type 2 diabetes. 6. Asymptomatic hypokalemia, replaced. 7. Noncompliance of meds. HISTORY AND PHYSICAL: The patient is a 71-year-old gentleman. He continues to smoke and drink heavily. He was admitted with abdominal pain and evidence of acute on chronic pancreatitis. PHYSICAL EXAMINATION: Please see the dictated note. PERTINENT LABORATORY AND X-RAY STUDIES: Admission hemoglobin was 14.0 g/dL, white count 5400. Serology for coronavirus was negative. Nonfasting blood sugars were in the mid 100s. Chemistry panel on admission, potassium 3.1 mEq. This was replaced. This will be followed up as an outpatient. He is not symptomatic. Creatinine is 0.7 mg percent. Nonfasting blood sugar 136 on admission. Cardiac enzymes were negative. IMAGING STUDIES: Abdominal and pelvis CT showed acute on chronic pancreatitis. No phlegmon identified. COURSE IN THE HOSPITAL: The patient was admitted. He was started on n.p.o. Pain and nausea control. He did well. Diet was advanced. We did elect to start him on some Creon for digestive health. On the third hospital day, he was alert, eating solid foods. He wanted to be discharged. Strong encouragement to quit smoking and drinking, whether or not he will remains to be seen. He was discharged then with a new script for Creon 1 capsule t.i.d. with meals. He should continue his aspirin, budesonide, bupropion, cholecalciferol, Neurontin, insulin regular and Lantus, losartan, melatonin, metformin, omeprazole, Spiriva, and trazodone dose unchanged. He was discharged then from our hospital in stable condition with explicit drug and followup care. Total discharge time spent 39 minutes. STEPHANIE/CARLOS DR: STEPHANIE/giulia TID: [id number]
== END 2021-08-24 08:50 | disposition home or self-care (01) | DRG 439 ==
LOC: ER 23:51 → EEVIPCON 23:51 → 1 SOUTH 08-23 03:56
PROVIDERS: ADMIT Internal Medicine; ATTEND Internal Medicine
DX: K85.90 Acute pancreatitis without necrosis or infection, unspecified (principal); E44.0 Moderate protein-calorie malnutrition; E11.9 Type 2 diabetes mellitus without complications; I10 Essential (primary) hypertension; K76.0 Fatty (change of) liver, not elsewhere classified; F10.20 Alcohol dependence, uncomplicated; J44.9 Chronic obstructive pulmonary disease, unspecified; K86.1 Other chronic pancreatitis; F17.200 Nicotine dependence, unspecified, uncomplicated; F12.90 Cannabis use, unspecified, uncomplicated; E83.42 Hypomagnesemia; Z20.822 Contact with and (suspected) exposure to COVID-19; E87.6 Hypokalemia; Z91.19 Patient's noncompliance with other medical treatment and regimen; Z91.14 Patient's other noncompliance with medication regimen; Z90.49 Acquired absence of other specified parts of digestive tract; Z83.3 Family history of diabetes mellitus; Z82.5 Family history of asthma and other chronic lower respiratory diseases; Z79.82 Long term (current) use of aspirin; Z88.0 Allergy status to penicillin; Z68.20 Body mass index [BMI] 20.0-20.9, adult
CPT/HCPCS: 36415; 74177; 80053; 80307; 81001; 82553; 82947; 83690; 83735; 84484; 85025; 87426; 93005; 96365; 96375; 99406; G0480; J1815; J1885; J2405; J3010; J3475; J3490; Q9967; U0003; 99285-25; J7030

== ENCOUNTER 2021-09-13 01:20 | Inpatient (IN) | payer MEDICARE, OTHER ==
[2021-09-13] VITALS (11 sets, daily range): BP systolic 142–179; BP diastolic 75–102
[~2021-09-13] VITALS: Ht 190.5 cm; Wt 75.9 kg
[2021-09-13] MEDS ORDERED: methylPREDNISolone SOD SUCC PF 125 MG/2 ML VIAL. IV ONE (01:30)
[2021-09-13] MEDS ORDERED: IPRATRPIUM/ALBUTEROL 0.5/2.5MG 3 ML NEBU. NEB ONE (01:30)
[2021-09-13 01:59] LABS: CALCIUM 8.9 mg/dL (8.5-10.1); CREATININE 1.1 mg/dL (0.7-1.3); POTASSIUM 3.9 mmol/L (3.5-5.1)
[2021-09-13] MEDS ORDERED: FUROSEMIDE 40 MG/4 ML VIAL IVP ONE (02:00)
[2021-09-13 02:07] LABS: BASO % 1 % (0-3); EOS # 0.4 x10^3/uL (0.0-0.7); EOS % 7 % (0-3); HEMATOCRIT 42.2 % (39.0-53.0); HEMOGLOBIN 13.1 g/dL (13.0-17.5); LYMPH # 2.5 x10^3/uL (1.0-4.8); LYMPH % 45 % (24-48); MEAN CORPUSCULAR HEMOGLOBIN 29 pg (25-35); MEAN CORPUSCULAR HGB CONC 31 g/dL (31-37); MEAN CORPUSCULAR VOLUME 92 fL (79-100); MONO # 0.6 x10^3/uL (0.0-1.1); MONO % 10 % (0-9); NEUT # 2.1 x10^3uL (1.8-7.7); NEUT % 37 % (31-73); PLATELET COUNT 187 x10^3/uL (140-400); RED BLOOD COUNT 4.58 x10^6/uL (4.30-5.70); RED CELL DISTRIBUTION WIDTH 14.4 % (11.5-14.5); WHITE BLOOD COUNT 5.6 x10^3/uL (4.0-11.0)
--- NOTE | 2021-09-13 02:09 | RAD ---
XR CHEST 1V 09/13/2021 1:22 AM INDICATION: Shortness of breath COMPARISON: Acute abdominal series 02/07/2019 TECHNIQUE: Portable frontal view of the chest is provided. FINDINGS: The cardiomediastinal silhouette is within normal limits. Diffuse coarse reticular interstitial pascual es are identified new from the prior examination. There are no significant pleural effusions. Prominent kamini. No pneumothorax. No suspicious osseous abnormality. IMPRESSION: Diffuse coarse reticular interstitial changes are identified with more confluent disease in the left lower lobe. Findings may represent a interstitial pneumonitis of infectious/inflammatory etiology. In terstitial edema could have similar appearance. Mild prominence of the kamini could reflect prominent p ulmonary vasculature versus lymphadenopathy. Electronically signed by: Ariella Vann MD (09/13/2021 2:07 AM) [facility]
[2021-09-13 02:12] LABS: ALBUMIN 3.5 g/dL (3.4-5.0); ALBUMIN/GLOBULIN RATIO 0.7 (1.0-1.7); TOTAL BILIRUBIN 0.5 mg/dL (0.2-1.0); TOTAL PROTEIN 8.2 g/dL (6.4-8.2)
[2021-09-13] MEDS ORDERED: IV NORMAL SALINE 1,000ML 1,000 ML IV ONE (02:30)
--- NOTE | 2021-09-13 02:31 | PHYS DOC ---
Past History Past Medical History: Alcoholism, Diabetes, Hypertension, Pancreatitis, Seizure Past Surgical History: Appendectomy, Other Additional Past Surgical Histo: Hernia Smoking: Cigarettes, Greater than 1 pack/day, Quit Less Than 1 Year Alcohol Use: None Drug Use: Marijuana General Adult EDM: Chief Complaint: SHORTNESS OF BREATH HPI: HPI: 71-year-old male presents via EMS with shortness of breath. EMS stated that the patient had an oxygen saturation in the 70s on room air when they arrived. They placed him on supplemental oxygen transport. He tells me that he has been feeling more short of breath for about a week. He smoked a cigarette "and then all this happened". Patient has history of both CHF and COPD. He has been taking his home medications as prescribed. He denies fever or chills. He denies chest pain. Patient is diaphoretic. Review of Systems: Review of Systems: Constitutional: Denies fever or chills Eyes: Denies change in visual acuity HENT: Denies nasal congestion or sore throat Respiratory: shortness of breath Cardiovascular: Denies chest pain or edema GI: Denies abdominal pain, nausea, vomiting, bloody stools or diarrhea : Denies dysuria Musculoskeletal: Denies back pain or joint pain Integument: Denies rash Neurologic: Denies headache, focal weakness or sensory changes Endocrine: Denies polyuria or polydipsia Lymphatic: Denies swollen glands Psychiatric: Denies depression or anxiety Current Medications: Current Meds: Current Medications Medications (Trade) Dose Ordered Sig/Cr Start Time Stop Time Status Last Admin Dose Admin Albuterol/ Ipratropium (Duoneb) 3 ml 1X ONCE 09/13/21 01:30 09/13/21 01:31 DC 09/13/21 01:31 3 ML Furosemide (Lasix) 40 mg 1X ONCE 09/13/21 02:00 09/13/21 02:01 DC 09/13/21 02:13 40 MG Methylprednisolone Sodium Succinate (SOLU-Medrol 125MG VIAL) 125 mg 1X ONCE 09/13/21 01:30 09/13/21 01:31 DC 09/13/21 01:31 125 MG Allergies: Allergies: Allergies Coded Allergies Type Severity Reaction Last Updated Verified Penicillins Allergy Intermediate 08/23/21 Yes Physical Exam: PE: Constitutional: Well developed, well nourished, moderate acute distress, non- toxic appearance. [] HENT: Normocephalic, atraumatic, bilateral external ears normal, oropharynx moist, no oral exudates, nose normal. [] Eyes: PERRLA, EOMI, conjunctiva normal, no discharge. [] Neck: Normal range of motion, no tenderness, supple, no stridor. [] Cardiovascular: Heart rate 83, regular rhythm, no murmur [] Lungs & Thorax: Bilateral breath sounds diminished throughout [] Abdomen: Bowel sounds normal, soft, no tenderness, no masses, no pulsatile masses. [] Skin: Warm, moist, no erythema, no rash. [] Back: No tenderness, no CVA tenderness. [] Extremities: No tenderness, no cyanosis, no clubbing, ROM intact, no edema. [] Neurologic: Alert and oriented X 3, normal motor function, normal sensory function, no focal deficits noted. [] Psychologic: Affect normal, judgement normal, mood normal. [] Current Patient Data: Labs: Laboratory Tests Test 09/13/21 01:30 09/13/21 01:32 White Blood Count 5.6 x10^3/uL (4.0-11.0) Red Blood Count 4.58 x10^6/uL (4.30-5.70) Hemoglobin 13.1 g/dL (13.0-17.5) Hematocrit 42.2 % (39.0-53.0) Mean Corpuscular Volume 92 fL (79-100) Mean Corpuscular Hemoglobin 29 pg (25-35) Mean Corpuscular Hemoglobin Concent 31 g/dL (31-37) Red Cell Distribution Width 14.4 % (11.5-14.5) Platelet Count 187 x10^3/uL (140-400) Neutrophils (%) (Auto) 37 % (31-73) Lymphocytes (%) (Auto) 45 % (24-48) Monocytes (%) (Auto) 10 % (0-9) H Eosinophils (%) (Auto) 7 % (0-3) H Basophils (%) (Auto) 1 % (0-3) Neutrophils # (Auto) 2.1 x10^3uL (1.8-7.7) Lymphocytes # (Auto) 2.5 x10^3/uL (1.0-4.8) Monocytes # (Auto) 0.6 x10^3/uL (0.0-1.1) Eosinophils # (Auto) 0.4 x10^3/uL (0.0-0.7) Basophils # (Auto) 0.0 x10^3/uL (0.0-0.2) Sodium Level 139 mmol/L (136-145) Potassium Level 3.9 mmol/L (3.5-5.1) Chloride Level 102 mmol/L (98-107) Carbon Dioxide Level 25 mmol/L (21-32) Anion Gap 12 (6-14) Blood Urea Nitrogen 19 mg/dL (8-26) Creatinine 1.1 mg/dL (0.7-1.3) Estimated GFR (Cockcroft-Gault) 66.0 BUN/Creatinine Ratio 17 (6-20) Glucose Level 230 mg/dL (70-99) H Lactic Acid Level 4.2 mmol/L (0.4-2.0) *H Calcium Level 8.9 mg/dL (8.5-10.1) Total Bilirubin 0.5 mg/dL (0.2-1.0) Aspartate Amino Transferase (AST) 170 U/L (15-37) H Alanine Aminotransferase (ALT) 111 U/L (16-63) H Alkaline Phosphatase 111 U/L (46-116) Troponin I High Sensitivity 15 ng/L (4-75) KK-Krd-Y-Type Natriuretic Peptide 879 pg/mL (0-124) H Total Protein 8.2 g/dL (6.4-8.2) Albumin 3.5 g/dL (3.4-5.0) Albumin/Globulin Ratio 0.7 (1.0-1.7) L POC Venous pH 7.26 (7.32-7.42) L POC Venous pCO2 56 mmHg (41-51) H POC Venous pO2 33 mmHg (20-40) Venous Blood HCO3 25 mmol/L (24-28) POC Venous O2 Saturation (Casa) 53 % POC FiO2 40 Vital Signs: Vital Signs Date Time Temp Pulse Resp B/P (MAP) Pulse Ox O2 Delivery O2 Flow Rate FiO2 09/13/21 01:24 98.6 111 30 193/109 (137) 99 BiPAP/CPAP EKG: EKG: [] Radiology/Procedures: Radiology/Procedures: [] Impressions: XR CHEST 1V 09/13/2021 1:22 AM INDICATION: Shortness of breath COMPARISON: Acute abdominal series 02/07/2019 TECHNIQUE: Portable frontal view of the chest is provided. FINDINGS: The cardiomediastinal silhouette is within normal limits. Diffuse coarse reticular interstitial changes are identified new from the prior examination. There are no significant pleural effusions. Prominent kamini. No pneumothorax. No suspicious osseous abnormality. IMPRESSION: Diffuse coarse reticular interstitial changes are identified with more confluent disease in the left lower lobe. Findings may represent a interstitial pneumonitis of infectious/inflammatory etiology. Interstitial edema could have similar appearance. Mild prominence of the kamini could reflect prominent pulmonary vasculature versus lymphadenopathy. Electronically signed by: Sarah Cooney MD (09/13/2021 2:07 AM) [facility] DICTATED AND SIGNED BY: SARAH COONEY MD DATE: 09/13/21201 CC: LUISA DE LEON DO; SEPIDEH HAYES DO ~MTH0 0 Heart Score: C/O Chest Pain: No Risk Factors: Risk Factors: DM, Current or recent (<one month) smoker, HTN, HLP, family history of CAD, obesity. Risk Scores: Score 0 - 3: 2.5% MACE over next 6 weeks - Discharge Home Score 4 - 6: 20.3% MACE over next 6 weeks - Admit for Clinical Observation Score 7 - 10: 72.7% MACE over next 6 weeks - Early Invasive Strategies Course & Med Decision Making: Course & Med Decision Making Pertinent Labs and Imaging studies reviewed. (See chart for details) The patient's labs are significant for a lactic acid of 4.2. His liver enzymes are elevated. His blood sugar is 230 with a normal anion gap. The patient appears fluid overloaded on chest x-ray. See official read for more details. I will diurese the patient with Lasix but will also need to give him a liter of normal saline to help correct his lactic acid. The patient's VBG is slightly acidotic at 7.263. The patient has been on BiPAP since arrival but we have been able to downgrade the oxygen concentration. We will continue to titrate this as needed. I spoke with Dr. Swift and he has accepted the patient for admission to the hospital. [] Roro Disclaimer: Roro Disclaimer: This electronic medical record was generated, in whole or in part, using a voice recognition dictation system. Departure Departure: Impression: Primary Impression: CHF exacerbation Qualified Codes: I50.23 - Acute on chronic systolic (congestive) heart failure Disposition: ADMITTED INPATIENT Admitting Physician: Nathan Swift Condition: STABLE Referrals: PCP,UNKNOWN (PCP) SEPIDEH HAYES DO Sep 13, 2021 02:31
[2021-09-13 02:39] LABS: BACTERIA,URINE 0 /HPF (0-FEW); BILIRUBIN,URINE NEG (NEG); CLARITY,URINE CLEAR; COLOR,URINE YELLOW; GLUCOSE,URINE 250 mg/dL (NEG); NITRITE,URINE NEG (NEG); RBC,URINE OCC /HPF (0-2); SQUAMOUS EPITHELIAL CELL,UR OCC /LPF; UROBILINOGEN,URINE 0.2 mg/dL (0.2 mg/dL)
[2021-09-13] MEDS ORDERED: ACETAMINOPHEN 325 MG TABLET PO PRN (02:45)
[2021-09-13] MEDS ORDERED: ONDANSETRON PF 4 MG/2 ML VIAL. IVP PRN (02:45)
--- NOTE | 2021-09-13 04:33 | EKG ---
[address] [id number] Test Date: 2021-09-13 Test Time: 01:48:27 Pat Name: ARIELA SANTILLAN Department: Room: [facility]04 1 Gender: M [employer]: : 1950 Requested By: SEPIDEH HAYES Order Number: [id number] Reading MD: Alejandro Alas Measurements Intervals Sherman Rate: 83 P: 41 MI: 178 QRS: 48 QRSD: 96 T: 54 QT: 412 QTc: 490 Interpretive Statements SINUS RHYTHM NON SPECIFIC ST-T WAVE CHANGES PROLONGED QT Electronically Signed On 09-18-2021 10:13:37 CORPORATE CONSULTANT by Alejandro Alas
--- NOTE | 2021-09-13 04:50 | NUR ---
Pt admitted to ICU bed 4 from ER via gurney, accompanied by EMS and nursing staff. Admission assessment completed. Pt here for c/o SOA that "got worse after smoking a cigarette." Dx: of CHF exacerbation. Pt recently here for Etoh induced pancreatitis. Pt admits to long history of drinking but stated that he has not had a drink since he was here last (August 23). Pt was on Bipap in ER but now currently on 2L NC with O2 sat > 95%. Pt A&Ox4, can be forgetful but pleasant with all cares and assessments. SCDs for VTE. Pt UTD on Flu and Covid vaccine. RT & CM consulted. Pt lives at home alone. POC reviewed with pt, understanding verbalized. Pt was given written information regarding hospital policies, unit procedures and contact persons. Valuables were checked and logged. Pt normally wears glasses, upper dentures and bilateral hearing aids but did not bring them with him.
[2021-09-13] MEDS ORDERED: PANTOPRAZOLE 40 MG TABLET. PO SCH (07:30)
[2021-09-13] MEDS ORDERED: metFORMIN XR 500 MG TAB.ER.24H PO SCH (08:00)
[2021-09-13] MEDS ORDERED: IPRATRPIUM/ALBUTEROL 0.5/2.5MG 3 ML NEBU. NEB SCH (08:00)
[2021-09-13] MEDS ORDERED: BUDESONIDE 0.5 MG/2 ML NEBU NEB SCH (08:00)
[2021-09-13] MEDS: INSULIN LISPRO 300 UNITS/3 ML VIAL. SQ SCH ×2 (08:40→12:00)
[2021-09-13] MEDS ORDERED: CHOLECALCIFEROL (VITAMIN D3) 1,000 UNIT TABLET PO SCH (09:00)
[2021-09-13] MEDS ORDERED: LOSARTAN 25 MG TABLET. PO SCH (09:00)
[2021-09-13] MEDS ORDERED: buPROPion 75 MG TABLET PO SCH (09:00)
[2021-09-13] MEDS ORDERED: ASPIRIN CHEWABLE 81 MG TABLET. PO SCH (09:00)
--- NOTE | 2021-09-13 16:59 | SSS ---
DATE OF SERVICE: 09/13/2021 ADMIT DATE: 09/13/2021 HISTORY OF PRESENT ILLNESS: The patient is a 71-year-old -Iranian male patient who was brought to the Emergency Room with a complaint of shortness of breath. When the emergency medical service personnel saw him, his oxygen saturation was only 70% on room air. They placed him on supplemental oxygen for transportation. He stated that he has been feeling more short of breath for about a week. He smoked a cigarette and then all this happened. He apparently is attempting to quit smoking and has been on Nicoderm patches as well as nicotine lozenges, but according to him, he smoked 2 cigarettes back to back and all these symptoms started. The patient has a history of congestive heart failure and COPD, has been taking his home medication as prescribed. His primary care physician is at the [facility]. He denied any chest pain. He has cough, which is mostly dry. Denied any nausea, vomiting or diaphoresis. He was extensively investigated in the Emergency Room and had an acute abdomen. X-ray of the chest, which showed that the patient has diffuse coarse reticular interstitial changes that are identified with more confluent disease in the left lower lobe. Finding may represent interstitial pneumonitis of infectious inflammatory etiologies, interstitial edema could have similar appearance. Mild prominence of the kamini could affect prominent pulmonary vasculature versus lymphadenopathy. He has also lab work, which showed a white cell count was normal at 5600. His initial blood gas showed a pH of 7.26, pCO2 of 56, pO2 of 33, bicarbonate 25 and oxygen saturation was only 53% on FiO2 of 40%. His chemistry showed that he has lactic acidosis and deranged liver enzymes. His urinalysis was essentially unremarkable. The patient was treated with IV Solu-Medrol, breathing treatment, was put on BiPAP and by the time he arrived here, he was on 2 liters of oxygen and eventually satting at 100%. The oxygen was discontinued, and his oxygen saturation continued to be about 98%-99% on room air. He was continued on all his medications. PAST MEDICAL HISTORY: Significant for type 2 diabetes mellitus, hypertension, COPD, obstructive sleep apnea on CPAP, generalized osteoarthritis. PAST SURGICAL HISTORY: Significant for left inguinal hernia repair and colonoscopy. ALLERGIES: HE IS ALLERGIC TO PENICILLIN. MEDICATIONS: He is currently on Spiriva HandiHaler 1 inhalation once a day, losartan potassium 25 mg once a day, aspirin 81 mg once a day, gabapentin 600 mg at bedtime, Wellbutrin 150 mg once a day, trazodone 100 mg at bedtime, budesonide/formoterol for Symbicort 2 puffs twice a day, omeprazole 20 mg once a day, metformin 500 mg daily. He is on NovoLog FlexPen 4 units b.i.d. before breakfast and lunch and NovoLog 5 units with supper. He is on Levemir insulin 14 units at bedtime, vitamin D for cholecalciferol 1000 units 3 times a day, and melatonin 6 mg at bedtime. FAMILY HISTORY: He has one sister younger and healthy. His father in his 80s and mother in her 70s. SOCIAL HISTORY: He is , has one son that he has not seen for years. He used to smoke 3 packs of cigarettes per day, started smoking when he was 15 years old. He has been attempting to quit smoking. He used to be also a heavy alcohol drinker, drinks about a pint of vodka every day. He has not drank for the last 3 months. He also used to smoke marijuana, used heroin and cocaine but that was years ago. He is currently retired from the , has served in [employer] and [employer], but has never been in a combat zone, according to him. REVIEW OF SYSTEMS: As per history of present illness. PHYSICAL EXAMINATION: GENERAL: On arrival to the Emergency Room, he was clearly tachypneic, tachycardic, but there was no pallor, jaundice, cyanosis or thyromegaly. No jugular venous distention. No limb edema. VITAL SIGNS: His heart rate was 111, blood pressure 193/109, temperature was 98.6, respiratory rate was 30 and oxygen saturation was 99%. HEAD, EYES, EARS, NOSE, AND THROAT: Normocephalic, atraumatic. NECK: Supple. HEART: Showed normal first and second heart sounds, no gallop or murmur. CHEST: Showed central trachea, equal bilateral chest expansion. Reduced air entry, vesicular breath sounds. No crepitation or rhonchi. ABDOMEN: Distended, soft, nontender. NEUROLOGIC: He was awake, alert, responding appropriately. He moves all extremities without difficulty. PSYCHOLOGIC: His affect, judgment and mood were normal. LABORATORY DATA: His CBC showed a white cell count 5600, hemoglobin 13, hematocrit 42, MCV 92 and platelet count of 187 with a manual differential showed 37% polymorphs, 45% lymphocytes and 10% monocytes. His serum sodium was 139, potassium 3.9, chloride 102, bicarbonate 25, anion gap of 12, BUN 19, creatinine 1.1. Estimated GFR was 66 mL per minute. His glucose was 230, calcium was 8.9. Total bilirubin is normal as well as alkaline phosphatase. AST, ALT slightly elevated. His beta natriuretic peptide was 879. Total protein 8.2, albumin was 3.5. Urinalysis showed the urine was yellow, clear with a pH of 6.5, specific gravity of 1.030. There is large amount of protein, 250 mg of glucose. The urine was negative for ketones, small amount of blood, negative for nitrite and leukocyte esterase and occasional rbc's, and 1-4 wbc's and no bacteria. ASSESSMENT AND PLAN: The patient was treated with IV Solu-Medrol and was also put on BiPAP machine initially. By the time he arrived to ICU, he was on 2 liters of oxygen with oxygen saturation of 100%. His oxygen was titrated and was discontinued. By the time I saw him today, he was on room air, maintaining his oxygen saturation at 98% on room air. On questioning him this afternoon, he denied any chest pain, shortness of breath except obviously on exertion, cough, phlegm or hemoptysis. He expressed desire to go home. He has followup arranged with his primary care physician at the [facility]. FINAL DISCHARGE DIAGNOSES: 1. Acute hypercapnic respiratory failure. 2. Chronic obstructive pulmonary disease. 3. Type 2 diabetes mellitus. 4. Hypertension. 5. Obstructive sleep apnea, on CPAP. ANIKET/CHRISTOS DR: Eagle TID: [id number]
[2021-09-13] MEDS ORDERED: INSULIN LISPRO 300 UNITS/3 ML VIAL. SQ SCH (17:00)
--- NOTE | 2021-09-13 17:19 | NUR ---
Discharge instructions reviewed with pt, questions answered. Piv and tele dc'd ptd. Discharge instructions, education materials and all belongings sent with pt. Cab called for pt as he did not have a ride. Cab here, pt escorted out via ambulation.
[2021-09-13] MEDS ORDERED: GABAPENTIN 300 MG CAPSULE. PO SCH (21:00)
[2021-09-13] MEDS ORDERED: traZODone 100 MG TABLET. PO SCH (21:00)
[2021-09-13] MEDS ORDERED: MELATONIN 3 MG TABLET PO SCH (21:00)
[2021-09-13] MEDS ORDERED: INSULIN GLARGINE SYRINGE. SQ SCH (21:00)
[2021-09-14] MEDS ORDERED: IPRATRPIUM/ALBUTEROL 0.5/2.5MG 3 ML NEBU. NEB SCH (08:00)
== END 2021-09-13 17:22 | disposition home or self-care (01) | DRG 189 ==
LOC: ER 01:20 → ICU 02:31
PROVIDERS: ADMIT Internal Medicine; ATTEND Internal Medicine
PROC: 5A09357 Assistance with Respiratory Ventilation, Less than 24 Consecutive Hours, Continuous Positive Airway Pressure (ICD-10-PCS; principal; 2021-09-13)
DX: J96.02 Acute respiratory failure with hypercapnia (principal); I50.23 Acute on chronic systolic (congestive) heart failure; J44.9 Chronic obstructive pulmonary disease, unspecified; I11.0 Hypertensive heart disease with heart failure; E11.9 Type 2 diabetes mellitus without complications; F17.200 Nicotine dependence, unspecified, uncomplicated; G47.33 Obstructive sleep apnea (adult) (pediatric); M15.9 Polyosteoarthritis, unspecified; Z90.49 Acquired absence of other specified parts of digestive tract; Z88.0 Allergy status to penicillin; Z20.822 Contact with and (suspected) exposure to COVID-19
CPT/HCPCS: 36415; 71045; 80053; 81001; 82803; 82947; 83605; 83880; 84484; 85025; 87040; 87426; 93005; 94640; 94660; 96374; 99406; J1815; J1940; J2930; U0003; 99285-25; J7030